=== PATIENT | male | born 1935 | race Caucasian/White ===

== ENCOUNTER 2019-05-24 22:41 | Inpatient (IN) | payer OTHER ==
[~2019-05-24] VITALS: Ht 182.9 cm; Wt 54.5 kg
[~2019-05-24 22:41] MED LIST: BENA20TA4 PO; CHOL10009 PO; GLIP10TA14 PO; LISI40TA3 PO; MTF1000T PO; PIOG45TA64 PO; RSV10T PO; TRAM50TA PO
[2019-05-24 22:59] VITALS: Ht 182.9 cm; Wt 54.5 kg
[2019-05-24] MEDS ORDERED: SOD CHLORIDE 0.9% 1,000 ML IV STA (23:49)
[2019-05-24] MEDS ORDERED: LACTATED RINGER'S 1,000 ML IV STA (23:49)
--- NOTE | 2019-05-24 23:53 | ERD ---
ER Documentation Chief Complaint Chief Complaint abdominal/back/chest/headache, also c/o poor appetite HPI 83-year-old man brought in by family members for loss of appetite and 2 days of weakness and probable dehydration. They state he has not been eating or drinking much and has had complaints of diffuse abdominal pain and cramping. Pain is been constant nonradiating and nonexertional. Patient denies history of abdominal surgeries or cancer. He has had no blood per rectum or melena, no fevers or chills. ROS All systems reviewed and are negative except as per history of present illness. Allergies Allergies: Coded Allergies: No Known Allergy (Unverified , 05/25/19) PMhx/Soc None Medical and Surgical Hx: pt denies Surgical Hx Hx Cardiac Disorders: Yes (HTN HLD) Hx Alcohol Use: No Hx Substance Use: No Hx Tobacco Use: Yes Smoking Status: Former smoker FmHx Family History: No diabetes Physical Exam Vitals Vital Signs Date Temp Pulse Resp B/P (MAP) Pulse Ox O2 O2 Flow FiO2 Time Delivery Rate 05/25/19 97.8 83 18 160/68 100 Nasal 2.0 00:54 (98) Cannula 05/24/19 97.8 102 20 109/53 95 22:59 (71) Physical Exam Const: No acute distress Head: Atraumatic Eyes: Normal Conjunctiva ENT: Normal External Ears, Nose and Mouth. Neck: Full range of motion. No meningismus. Resp: Clear to auscultation bilaterally Cardio: Regular rate and rhythm, no murmurs Abd: Soft, non tender, non distended. Normal bowel sounds Skin: No petechiae or rashes Back: No midline or flank tenderness Ext: No cyanosis, or edema Neur: Awake and alert Psych: Normal Mood and Affect Result Diagram: 05/24/19 2340 05/24/19 2340 Results 24 hrs Laboratory Tests Test 05/24/19 23:40 05/25/19 02:16 White Blood Count 28.6 10^3/ul Red Blood Count 4.72 10^6/ul Hemoglobin 13.2 g/dl Hematocrit 41.2 % Mean Corpuscular Volume 87.3 fl Mean Corpuscular Hemoglobin 28.0 pg Mean Corpuscular Hemoglobin Concent 32.0 g/dl Red Cell Distribution Width 19.3 % Platelet Count 223 10^3/UL Mean Platelet Volume 12.1 fl Immature Granulocytes % 0.700 % Neutrophils % % Segmented Neutrophils % (Manual) 88 % Band Neutrophils % (Manual) 5 % Lymphocytes % % Lymphocytes % (Manual) 3 % Monocytes % % Monocytes % (Manual) 2 % Eosinophils % % Basophils % % Myelocytes % (Manual) 1 % Plasma Cells % (manual) 1 % Nucleated Red Blood Cells % 0.0 /100WBC Immature Granulocytes # 0.190 10^3/ul Neutrophils # 10^3/ul Neutrophils # (Manual) 25.6 10^3/ul Band Neutrophils # 1.4 10^3/ul Lymphocytes (Manual) 0.8 10^3/ul Lymphocytes # 10^3/ul Monocytes # 10^3/ul Monocytes # (Manual) 0.5 10^3/ul Eosinophils # 10^3/ul Basophils # 10^3/ul Myelocytes # 0.2 10^3/ul Plasma Cells # (manual) 0.2 10^3/ul Nucleated Red Blood Cells # 10^3/ul Platelet Estimate NORMAL Giant Platelets 1 % Poikilocytosis 1+ Anisocytosis 1+ Prothrombin Time 15.5 Sec Prothrombin Time Ratio 1.2 INR International Normalized Ratio 1.22 Activated Partial Thromboplast Time 32.0 Sec Sodium Level 138 mmol/L Potassium Level 4.9 mmol/L Chloride Level 101 mmol/L Carbon Dioxide Level 23 mmol/L Anion Gap 14 Blood Urea Nitrogen 26 mg/dl Creatinine 1.31 mg/dl Est Glomerular Filtrat Rate mL/min mL/min Glucose Level 101 mg/dl Calcium Level 9.2 mg/dl Total Bilirubin 1.0 mg/dl Direct Bilirubin 0.00 mg/dl Indirect Bilirubin 1.0 mg/dl Aspartate Amino Transf (AST/SGOT) 199 IU/L Alanine Aminotransferase (ALT/SGPT) 57 IU/L Alkaline Phosphatase 1443 IU/L Troponin I < 0.012 ng/ml Total Protein 7.4 g/dl Albumin 3.3 g/dl Globulin 4.10 g/dl Albumin/Globulin Ratio 0.80 Lipase 122 U/L Urine Color MELISSA Urine Clarity SLIGHTLY CLOUDY Urine pH 5.0 Urine Specific [place] 1.017 Urine Ketones TRACE mg/dL Urine Nitrite NEGATIVE mg/dL Urine Bilirubin NEGATIVE mg/dL Urine Urobilinogen 2+ mg/dL Urine Leukocyte Esterase NEGATIVE Jojo/ul Urine Microscopic RBC 3 /HPF Urine Microscopic WBC 2 /HPF Urine Bacteria FEW /HPF Urine Mucus FEW /HPF Urine Hemoglobin NEGATIVE mg/dL Urine Glucose NEGATIVE mg/dL Urine Total Protein 1+ mg/dl Current Medications Medications Dose Sig/Mary Start Time Status Last (Trade) Ordered Route PRN Stop Time Admin Dose Reason Admin Sodium 1,000 ml @ Q1H STAT 05/24/19 DC 05/25/19 Chloride 1,000 mls/hr IV 23:49 00:04 05/25/19 00:48 Lactated 1,000 ml @ Q1H STAT 05/24/19 DC 05/25/19 Ringer's 1,000 mls/hr IV 23:49 00:03 05/25/19 00:48 Morphine 4 mg ONCE STAT 05/25/19 DC 05/25/19 Sulfate IV 00:18 00:48 (morphine) 05/25/19 00:19 Ondansetron 4 mg ONCE STAT 05/25/19 DC 05/25/19 HCl (Zofran IV 00:18 00:47 Inj) 05/25/19 00:19 Piperacillin 100 ml @ ONCE ONCE 05/25/19 DC 05/25/19 Sod/ 200 mls/hr IVPB 01:00 01:14 Tazobactam 05/25/19 01:29 Sod Sodium 1,000 ml @ [id number] IV 05/25/19 Chloride 70 mls/hr 02:28 IV Flush 3 ml PER 05/25/19 (NS 3 ml) PROTOCOL IV 02:30 Ondansetron 4 mg Q6H PRN 05/25/19 HCl (Zofran IV 02:30 Inj) NAUSEA/VOMITI NG 650 mg Q6H PRN 05/25/19 Acetaminophen PO .PAIN 1-3 02:30 (Tylenol OR TEMP Tab) Docusate 100 mg Q12H PRN 05/25/19 Sodium PO 02:30 (Colace) .CONSTIPATION Bisacodyl 5 mg DAILY PRN 05/25/19 (Dulcolax) PO 02:30 .CONSTIPATION Enoxaparin 40 mg DAILY SC 05/25/19 Sodium 09:00 (Lovenox) Procedures/MDM IV line was established patient was placed on ekg monitor rhythm strip revealed a sinus tachycardia at 110 bpm with upright P and T waves. Patient was afebrile EKG performed, read by me revealed a sinus tachycardia at 106 bpm, right axis deviation, right bundle branch block, no concerning ST elevations or depressions noted Administered 2 L IV crystalloid for dehydration, morphine 4 mg IV, Zofran 4 mg IV. 1 view chest x-ray performed, read by me revealed a left hilar mass, no acute infiltrates, no pneumothorax CBC reveals a leukocytosis of 29, electrolytes revealed dehydration with a BUN/creatinine of 26/1.3, liver function tests are unremarkable but alkaline phosphatase elevated at 1443, troponin negative, urinalysis negative for infection. CT scan of the abdomen pelvis was performed,IMPRESSION: 1. Partially visualized left perihilar mass suspicious for a neoplasm. 2. Elevated left hemidiaphragm with associated pleural effusion and atelectasis. 3. Enlarged liver with multiple poorly defined hypodense masses suspicious for a metastatic disease. 4. Abdominal lymphadenopathy including a necrotic appearing periportal lymph node. 5. Cholelithiasis with gallbladder sludge. 6. Mild abdominal and pelvic ascites. 7. Mild sigmoid colon diverticulosis without evidence for diverticulitis. 8. Diffuse atherosclerotic dash calcification. 9. Bilateral renal cysts. No obstructive uropathy. 10. Degenerative changes of the lumbar spine and bilateral hips. I administered Zosyn 3.375 g IV. Patient has new metastatic disease most likely due to colon carcinoma and has continued abdominal pain, he will be admitted to telemetry for continued medical management and consultations. Departure Diagnosis: Primary Impression: Acute dehydration Additional Impressions: Leukocytosis Leukocytosis type: lymphocytosis Qualified Codes: D72.820 - Lymphocytosis (symptomatic) Metastatic disease Cholelithiasis Cholelithiasis location: gallbladder Cholecystitis presence: without cholecystitis Biliary obstruction: without biliary obstruction Qualified Codes: K80.20 - Calculus of gallbladder without cholecystitis without obstruction Mass of left lung Ruled Out: Acute weakness Condition: Fair DESHWAN MCDONALD MD May 24, 2019 23:53
[2019-05-25] MEDS ORDERED: morphine 4 MG/ML VIAL IV STA (00:18)
[2019-05-25] MEDS ORDERED: ONDANSETRON 4 MG INJ IV STA (00:18)
[2019-05-25] MEDS ORDERED: PIPER-TAZO 3.375 GM IV (PMX) 100 ML IVPB ONE (01:00)
[2019-05-25] MEDS: SOD CHLORIDE 0.9% 1,000 ML IV SCH ×2 (02:28→10:28)
[2019-05-25] MEDS ORDERED: NACL 0.9% 3 ML SYG IV SCH (02:30)
[2019-05-25] MEDS ORDERED: BISACODYL (EC) 5 MG TAB PO PRN (02:30)
[2019-05-25] MEDS ORDERED: ONDANSETRON 4 MG INJ IV PRN (02:30)
[2019-05-25] MEDS ORDERED: DOCUSATE SODIUM 100 MG CAP PO PRN (02:30)
[2019-05-25] MEDS ORDERED: ACETAMINOPHEN 325 MG TAB PO PRN (02:30)
[2019-05-25 05:30] VITALS: BP 146/66; PULSE 81; RESP 17
[2019-05-25 07:26] VITALS: BP 146/40; PULSE 79; RESP 20
--- NOTE | 2019-05-25 08:48 | HP ---
Date/Time of Note Date/Time of Note DATE: 05/25/19 TIME: 08:34 Assessment/Plan VTE Prophylaxis SCD applied (from Nsg): Yes Pharmacological prophylaxis: NA/contraindicated Pharm contraindication: low risk/ambulating Lines/Catheters IV Catheter Type (from Nrsg): Peripheral IV Urinary Cath still in place: No Assessment/Plan Hospital Course This is a 83-year-old male being admitted to the telemetry floor for: #1 lung mass: Suspicion for underlying neoplasm given patient's history of weight loss. Will obtain a dedicated CT of the chest to further evaluate, and then consider lung mass biopsy versus liver mass biopsy. Will consult hematology . #2 Leukocytosis: Reactive versus infectious versus secondary to malignancy.. Patient does have 5% bandemia but no fevers. He was initiated on antibiotics in the emergency department we will continue antibiotics at the current time. Will await culture results. Monitor for fevers. #3 liver masses: Suspicion for possible metastatic disease. Please see #1. #4 acute kidney injury: I do not have a previous baseline creatinine. Patient does appear dehydrated. We will hydrate the patient with normal saline. Monitor renal function. Consider further work-up if renal function does not improve. Avoid NSAIDs and nephrotoxic agents #5 Elevated alkaline phosphatase: Imaging studies are not consistent with signs of cholecystitis or other infectious etiology at the current time. Will check a GGT. Could be secondary to underlying bone pathology versus malignancy. #6 Hypertension: We will hold home medication at the current time given HEIDE. Will need to confirm whether he is on benazepril or lisinopril. #7 diabetes mellitus: Given patient's poor p.o. intake.We will hold home oral medications, insulin sliding scale. Check hemoglobin A1c #8 hyperlipidemia: Resume statin when indicated #9 DVT GI prophylaxis: #9 weight loss: Concern for underlying malignant process. Please see #1. #10 DVT GI prophylaxis: SCDs, no GI prophylaxis indicated Further treatment strategy will be implemented as per the clinical course. CODE STATUS: DNR/DNI. I had a lengthy discussion with the patient who stated that he does not want to be on any artificial means of keeping him alive especially mechanical ventilation. He does not want to pursue diagnosis for the underlying mass. Result Diagram: 05/25/19 0539 05/25/19 0539 Results 24hrs Laboratory Tests Test 05/24/19 23:40 05/25/19 02:16 05/25/19 05:39 White Blood Count 28.6 H 23.7 H Red Blood Count 4.72 4.21 L Hemoglobin 13.2 L 11.9 L Hematocrit 41.2 L 36.7 L Mean Corpuscular Volume 87.3 87.2 Mean Corpuscular Hemoglobin 28.0 L 28.3 L Mean Corpuscular 32.0 32.4 Hemoglobin Concent Red Cell Distribution Width 19.3 H 19.2 H Platelet Count 223 116 #L Mean Platelet Volume 12.1 H 13.1 H Immature Granulocytes % 0.700 H 0.800 H Neutrophils % 90.2 H Segmented Neutrophils 88 H % (Manual) Band Neutrophils % (Manual) 5 H Lymphocytes % 5.1 L Lymphocytes % (Manual) 3 L Monocytes % 3.6 Monocytes % (Manual) 2 Eosinophils % 0.0 Basophils % 0.3 Myelocytes % (Manual) 1 H Plasma Cells % (manual) 1 Nucleated Red Blood Cells % 0.0 0.0 Immature Granulocytes # 0.190 H 0.190 H Neutrophils # 21.4 H Neutrophils # (Manual) 25.6 H Band Neutrophils # 1.4 H Lymphocytes (Manual) 0.8 Lymphocytes # 1.2 Monocytes # 0.9 Monocytes # (Manual) 0.5 Eosinophils # 0.0 Basophils # 0.1 Myelocytes # 0.2 H Plasma Cells # (manual) 0.2 H Nucleated Red Blood Cells # 0.0 Platelet Estimate NORMAL Giant Platelets 1 H Poikilocytosis 1+ Anisocytosis 1+ Prothrombin Time 15.5 H Prothrombin Time Ratio 1.2 INR International 1.22 Normalized Ratio Activated Partial Thromboplast 32.0 Time Sodium Level 138 138 Potassium Level 4.9 4.8 Chloride Level 101 105 Carbon Dioxide Level 23 22 Anion Gap 14 H 11 Blood Urea Nitrogen 26 H 27 H Creatinine 1.31 H 1.16 Est Glomerular Filtrat Rate mL/min Glucose Level 101 79 Calcium Level 9.2 8.7 Total Bilirubin 1.0 0.8 Direct Bilirubin 0.00 0.00 Indirect Bilirubin 1.0 0.8 Aspartate Amino 199 H 174 H Transf (AST/SGOT) Alanine 57 54 Aminotransferase (ALT/SGPT) Alkaline Phosphatase 1443 H 1388 H Troponin I < 0.012 Total Protein 7.4 6.7 Albumin 3.3 2.9 L Globulin 4.10 H 3.80 H Albumin/Globulin Ratio 0.80 0.76 Lipase 122 Urine Color MELISSA Urine Clarity SLIGHTLY CLOUDY A Urine pH 5.0 Urine Specific [place] 1.017 Urine Ketones TRACE A Urine Nitrite NEGATIVE Urine Bilirubin NEGATIVE Urine Urobilinogen 2+ H Urine Leukocyte Esterase NEGATIVE Urine Microscopic RBC 3 Urine Microscopic WBC 2 Urine Bacteria FEW A Urine Mucus FEW A Urine Hemoglobin NEGATIVE Urine Glucose NEGATIVE Urine Total Protein 1+ H Magnesium Level 1.8 Triglycerides Level 175 H Cholesterol Level 188 LDL Cholesterol, Calculated 127 HDL Cholesterol 26 L Cholesterol/HDL Ratio 7.2 Thyroid Stimulating 6.400 H Hormone (TSH) HPI/ROS Admit Date/Time Admit Date/Time May 25, 2019 at 02:29 Hx of Present Illness Chief complaint: Generalized weakness, abdominal pain for the last few weeks This is a 83-year-old male with a past medical history of hypertension, diabetes mellitus, hyperlipidemia and was a [employer] who presents to the presented to the emergency department with complaints of weakness and generalized abdominal pain for the last few weeks. Patient reports that he has had a poor appetite over the last few weeks for both solids and liquids. He denies having difficulty swallowing or eating he just states that he does have an appetite. He does report weight loss but does not specify an amount. He denies any fevers. He reports that his pain is generalized of his abdomen and has been constant but is nonradiating. He denies any problems with his bowel movement and denies any hemoptysis or hematemesis or melena or hematochezia. Denies any blood in his urine. Allergies: NKDA Medications: Benazepril 20 mg p.o. daily Vitamin D3 Glipizide 10 mg p.o. daily Lisinopril 40 mg p.o. daily Metformin 1000 mg p.o. twice daily Actos 40 mg p.o. daily Tramadol 50 mg p.o. daily Rosuvastatin 10 mg p.o. daily ROS Const: As per HPI Eyes : No pain discharge or redness or change in visual acuity ENT: No pain, sore throat, congestion, congestion, dysphagia or discharge Respiratory: No shortness of breath, cough, sputum, wheezing, or pleuritic pain Cardiovascular: No chest pain, palpitation, PND, or edema GI : As per HPI Genitourinary: No dysuria, hematuria, flank pain , discharge or CVA tenderness Musculoskeletal: No joint pain, back pain, neck pain, restricted range of motion in neck or joints Skin: No rash, bruising or hives Neuro: No headache, dizziness, syncope, seizure, focal weakness Endocrine: No polyuria, polydipsia, temperature intolerance Psych: No hallucination, depression, anxiety or suicidal ideation PMH/Family/Social Past Medical History Hypertension Diabetes mellitus Hyperlipidemia Medications Current Medications Sodium Chloride 1,000 ml @ 70 mls/hr [id number] IV ; Start 05/25/19 at 02:28 IV Flush (NS 3 ml) 3 ml PER PROTOCOL IV ; Start 05/25/19 at 02:30 Ondansetron HCl (Zofran Inj) 4 mg Q6H PRN IV NAUSEA/VOMITING; Start 05/25/19 at 02:30 Acetaminophen (Tylenol Tab) 650 mg Q6H PRN PO .PAIN 1-3 OR TEMP; Start 05/25/19 at 02:30 Docusate Sodium (Colace) 100 mg Q12H PRN PO .CONSTIPATION; Start 05/25/19 at 02 :30 Bisacodyl (Dulcolax) 5 mg DAILY PRN PO .CONSTIPATION; Start 05/25/19 at 02:30 Enoxaparin Sodium (Lovenox) 40 mg DAILY SC ; Start 05/25/19 at 09:00 Coded Allergies: No Known Allergy (Unverified , 05/25/19) Past Surgical History Past Surgical Hx: no surgical history Family History Significant Family History: no pertinent family hx Social History Alcohol Use: none Smoking Status: Never smoker Drug Use: none Exam/Review of Systems Vital Signs Vitals Vital Signs Date Temp Pulse Resp B/P (MAP) Pulse Ox O2 O2 Flow FiO2 Time Delivery Rate 05/25/19 96 Room Air 07:53 05/25/19 97.4 79 20 146/40 07:26 (75) 05/25/19 2.0 04:28 Exam Exam General: Patient is a pleasant male currently lying in bed in no acute distress, he does appear to be disheveled and dehydrated, thin/frail appearing HEENT: Atraumatic, normocephalic. The pupils are equal, round and reactive. Extraocular motor are intact Neck: Supple with full range of motion. No rigidity or meningismus Chest: Nontender Lungs: Clear to auscultation bilaterally no crackles rales or wheezing Heart: Normal S1-S2, Regular rhythm and rate. No murmur, S3, or S4 Abdomen: Soft , nontender, nondistended , bowel sounds are present. No guarding no rebound tenderness , No masses or organomegaly. No costovertebral temporal angle mass Extremities: Ecchymosis noted of the bilateral arms, sacral decub stage I Neurologic: Normal mental status, speech normal, cranial nerves II through XII are intact, motor and sensory are intact, EMILIANO SADLER May 25, 2019 08:45
[2019-05-25] MEDS ORDERED: ENOXAPARIN 40 MG/0.4 ML SYG SC SCH (09:00)
[2019-05-25] MEDS: PIPER-TAZO 3.375 GM IV (PMX) 100 ML IVPB SCH ×3 (10:29→18:42)
[2019-05-25 11:45] VITALS: BP 142/71; PULSE 81; RESP 20
--- NOTE | 2019-05-25 13:57 | PN ---
Date/Time of Note Date/Time of Note DATE: 05/25/19 TIME: 13:57 Assessment/Plan VTE Prophylaxis Risk score (from Nsg)>0 risk: 7 SCD applied (from Nsg): Yes Pharmacological prophylaxis: LMWH Lines/Catheters IV Catheter Type (from Nrsg): Peripheral IV Urinary Cath still in place: No Assessment/Plan Hospital Course 83-year-old male with a past medical history of hypertension, diabetes mellitus, hyperlipidemia and was a [place] who presents to the presented to the emergency department with complaints of weakness and generalized abdominal pain for the last few weeks currently managed as follows: Large left upper lobe/hilar mass with satellite lesions in the left upper lobe as well as extensive mediastinal lymphadenopathy concerning for metastatic primary lung cancer. Large left pleural effusion and atelectasis of most of the left lower lobe. Moderately sized necrotic cranial lesion -patient reports this was said to be benign at [facility], will request records -planned for excision 06/12/19 at the [facility] Enlarged liver with multiple poorly defined hypodense masses suspicious for a metastatic disease. -alk phos levels also significantly elevated Hypertension Diabetes Dyslipidemia Acute renal insufficiency: resolved ? Sepsis with bandemia vs SIRS -however high probability of underlying obstructive pna, continue empiric Zosyn Cholelithiasis without cholecystitis Cachexia Plan: patient will need biopsy, will defer to heme onc for best biopsy site. Liver versus lung, or both ? continue abx, supportive care Thoracentesis ? Palliative care consult Result Diagram: 05/25/19 0539 05/25/19 0723 Results 24hrs Laboratory Tests Test 05/24/19 23:40 05/25/19 02:16 05/25/19 05:39 05/25/19 07:23 White Blood Count 28.6 H 23.7 H Red Blood Count 4.72 4.21 L Hemoglobin 13.2 L 11.9 L Hematocrit 41.2 L 36.7 L Mean Corpuscular 87.3 87.2 Volume Mean Corpuscular 28.0 L 28.3 L Hemoglobin Mean Corpuscular 32.0 32.4 Hemoglobin Concen t Red Cell 19.3 H 19.2 H Distribution Width Platelet Count 223 116 #L Mean Platelet 12.1 H 13.1 H Volume Immature 0.700 H 0.800 H Granulocytes % Neutrophils % 90.2 H Segmented 88 H Neutrophils % (Manual) Band Neutrophils 5 H % (Manual) Lymphocytes % 5.1 L Lymphocytes % 3 L (Manual) Monocytes % 3.6 Monocytes % 2 (Manual) Eosinophils % 0.0 Basophils % 0.3 Myelocytes % 1 H (Manual) Plasma Cells % 1 (manual) Nucleated Red 0.0 0.0 Blood Cells % Immature 0.190 H 0.190 H Granulocytes # Neutrophils # 21.4 H Neutrophils # 25.6 H (Manual) Band Neutrophils 1.4 H # Lymphocytes 0.8 (Manual) Lymphocytes # 1.2 Monocytes # 0.9 Monocytes # 0.5 (Manual) Eosinophils # 0.0 Basophils # 0.1 Myelocytes # 0.2 H Plasma Cells # 0.2 H (manual) Nucleated Red 0.0 Blood Cells # Platelet Estimate NORMAL Giant Platelets 1 H Poikilocytosis 1+ Anisocytosis 1+ Prothrombin Time 15.5 H Prothrombin Time 1.2 Ratio INR International 1.22 Normalized Ratio Activated 32.0 Partial Thrombopl ast Time Sodium Level 138 138 Potassium Level 4.9 4.8 Chloride Level 101 105 Carbon Dioxide 23 22 Level Anion Gap 14 H 11 Blood Urea 26 H 27 H Nitrogen Creatinine 1.31 H 1.16 Est Glomerular Filtrat Rate mL/min Glucose Level 101 79 Calcium Level 9.2 8.7 Total Bilirubin 1.0 0.8 Direct Bilirubin 0.00 0.00 Indirect 1.0 0.8 Bilirubin Aspartate Amino 199 H 174 H Transf (AST/SGOT) Alanine 57 54 Aminotransferase (ALT/SGPT) Alkaline 1443 H 1388 H Phosphatase Troponin I < 0.012 Total Protein 7.4 6.7 Albumin 3.3 2.9 L Globulin 4.10 H 3.80 H Albumin/Globulin 0.80 0.76 Ratio Lipase 122 Urine Color MELISSA Urine Clarity SLIGHTLY CLOUDY A Urine pH 5.0 Urine Specific 1.017 [place] Urine Ketones TRACE A Urine Nitrite NEGATIVE Urine Bilirubin NEGATIVE Urine 2+ H Urobilinogen Urine Leukocyte NEGATIVE Esterase Urine Microscopic 3 RBC Urine Microscopic 2 WBC Urine Bacteria FEW A Urine Mucus FEW A Urine Hemoglobin NEGATIVE Urine Glucose NEGATIVE Urine Total 1+ H Protein Magnesium Level 1.8 Triglycerides 175 H Level Cholesterol Level 188 LDL Cholesterol, 127 Calculated HDL Cholesterol 26 L Cholesterol/HDL 7.2 Ratio Thyroid 6.400 H Stimulating Hormone (TSH) Test 05/25/19 10:18 Carcinoembryonic 52.8 H Antigen CA 19-9 Antigen 745.0 H Immunoglobulin A 543 H Immunoglobulin G 1698 H Immunoglobulin M 153 Subjective 24 Hr Interval Summary Free Text/Dictation Patient is a poor historian, but he tells me that he was recently [facility] when he had gone for assessment of lethargy and poor appetite, but because nothing was being done for him he opted to be discharged. 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 He is being managed for it at the [facility], and tells me that he has surgery scheduled to remove it on the of next month. Regarding why he was brought in here, the patient is not really able to tell me much, but the admitting H&P reports family concerns for weakness and generalized abdominal pain as well as poor appetite. The patient does tell me that he has been told in the past that he has a liver mass that is concerning for cancer. Again the patient is a poor historian. In the emergency room CT of the abdomen and pelvis does confirm enlarged liver with multiple masses suspicious for metastasis and a chest CT shows a large left upper lobe heel and mass with satellite lesions in the left upper lobe and extensive mediastinal lymphadenopathy concerning for primary metastatic lung cancer. Patient at this time is awaiting oncology review. Currently however he is comfortable. Exam/Review of Systems Exam Vitals Vital Signs Date Temp Pulse Resp B/P (MAP) Pulse Ox O2 O2 Flow FiO2 Time Delivery Rate 05/25/19 Room Air 12:13 05/25/19 97.8 81 20 142/71 94 11:45 (94) 05/25/19 2.0 04:28 Exam General: A&O x3, answering questions appropriately, frail , cachectic HEENT: moderate necrotic, but non oozing or infected temporooccipital cranial lesion PERRL. EOM intact Neck: supple CVS: S1, S2, RRR. no murmurs. no pain on chest wall palpation Lungs: CTA but diminished ++ L lung Abd: soft, nontender, +BS Ext: moving all extremities, no edema, diffuse msc wasting skin: multiple ecchymosis . Results Results 24hrs Laboratory Tests Test 05/24/19 23:40 05/25/19 02:16 05/25/19 05:39 05/25/19 07:23 White Blood Count 28.6 H 23.7 H Red Blood Count 4.72 4.21 L Hemoglobin 13.2 L 11.9 L Hematocrit 41.2 L 36.7 L Mean Corpuscular 87.3 87.2 Volume Mean Corpuscular 28.0 L 28.3 L Hemoglobin Mean Corpuscular 32.0 32.4 Hemoglobin Concen t Red Cell 19.3 H 19.2 H Distribution Width Platelet Count 223 116 #L Mean Platelet 12.1 H 13.1 H Volume Immature 0.700 H 0.800 H Granulocytes % Neutrophils % 90.2 H Segmented 88 H Neutrophils % (Manual) Band Neutrophils 5 H % (Manual) Lymphocytes % 5.1 L Lymphocytes % 3 L (Manual) Monocytes % 3.6 Monocytes % 2 (Manual) Eosinophils % 0.0 Basophils % 0.3 Myelocytes % 1 H (Manual) Plasma Cells % 1 (manual) Nucleated Red 0.0 0.0 Blood Cells % Immature 0.190 H 0.190 H Granulocytes # Neutrophils # 21.4 H Neutrophils # 25.6 H (Manual) Band Neutrophils 1.4 H # Lymphocytes 0.8 (Manual) Lymphocytes # 1.2 Monocytes # 0.9 Monocytes # 0.5 (Manual) Eosinophils # 0.0 Basophils # 0.1 Myelocytes # 0.2 H Plasma Cells # 0.2 H (manual) Nucleated Red 0.0 Blood Cells # Platelet Estimate NORMAL Giant Platelets 1 H Poikilocytosis 1+ Anisocytosis 1+ Prothrombin Time 15.5 H Prothrombin Time 1.2 Ratio INR International 1.22 Normalized Ratio Activated 32.0 Partial Thrombopl ast Time Sodium Level 138 138 Potassium Level 4.9 4.8 Chloride Level 101 105 Carbon Dioxide 23 22 Level Anion Gap 14 H 11 Blood Urea 26 H 27 H Nitrogen Creatinine 1.31 H 1.16 Est Glomerular Filtrat Rate mL/min Glucose Level 101 79 Calcium Level 9.2 8.7 Total Bilirubin 1.0 0.8 Direct Bilirubin 0.00 0.00 Indirect 1.0 0.8 Bilirubin Aspartate Amino 199 H 174 H Transf (AST/SGOT) Alanine 57 54 Aminotransferase (ALT/SGPT) Alkaline 1443 H 1388 H Phosphatase Troponin I < 0.012 Total Protein 7.4 6.7 Albumin 3.3 2.9 L Globulin 4.10 H 3.80 H Albumin/Globulin 0.80 0.76 Ratio Lipase 122 Urine Color MELISSA Urine Clarity SLIGHTLY CLOUDY A Urine pH 5.0 Urine Specific 1.017 [place] Urine Ketones TRACE A Urine Nitrite NEGATIVE Urine Bilirubin NEGATIVE Urine 2+ H Urobilinogen Urine Leukocyte NEGATIVE Esterase Urine Microscopic 3 RBC Urine Microscopic 2 WBC Urine Bacteria FEW A Urine Mucus FEW A Urine Hemoglobin NEGATIVE Urine Glucose NEGATIVE Urine Total 1+ H Protein Magnesium Level 1.8 Triglycerides 175 H Level Cholesterol Level 188 LDL Cholesterol, 127 Calculated HDL Cholesterol 26 L Cholesterol/HDL 7.2 Ratio Thyroid 6.400 H Stimulating Hormone (TSH) Test 05/25/19 10:18 Carcinoembryonic 52.8 H Antigen CA 19-9 Antigen 745.0 H Immunoglobulin A 543 H Immunoglobulin G 1698 H Immunoglobulin M 153 Medications Medication Current Medications Sodium Chloride 1,000 ml @ 70 mls/hr [id number] IV Last administered on 05/25/19 10:28; Admin Dose 70 MLS/HR; Start 05/25/19 at 02:28 IV Flush (NS 3 ml) 3 ml PER PROTOCOL IV ; Start 05/25/19 at 02:30 Ondansetron HCl (Zofran Inj) 4 mg Q6H PRN IV NAUSEA/VOMITING; Start 05/25/19 at 02:30 Acetaminophen (Tylenol Tab) 650 mg Q6H PRN PO .PAIN 1-3 OR TEMP; Start 05/25/19 at 02:30 Docusate Sodium (Colace) 100 mg Q12H PRN PO .CONSTIPATION; Start 05/25/19 at 02:30 Bisacodyl (Dulcolax) 5 mg DAILY PRN PO .CONSTIPATION; Start 05/25/19 at 02:30 Enoxaparin Sodium (Lovenox) 40 mg DAILY SC Last administered on 05/25/19at 10:30; Admin Dose 40 MG; Start 05/25/19 at 09:00 Piperacillin Sod/ Tazobactam Sod 100 ml @ 200 mls/hr Q6 IVPB Last administered on 05/25/19 10:29; Admin Dose 200 MLS/HR; Start 05/25/19 at 09:00 MISAEL JUNIOR May 25, 2019 13:57
[2019-05-25 15:42] VITALS: BP 145/85; PULSE 77; RESP 20
--- NOTE | 2019-05-25 17:19 | CONS ---
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 He does not want intubation or heroic measures, such as CPR, but does want some things treated. His main concern is the skin cancer on his scalp but the bigger issue may be the probable lung tumor. Given the obvious hepatomegaly, a liver biopsy should be an easy way to obtain tissue. The reason would be to confirm the diagnosis of carcinoma as well as to run genomic studies to see if an easy treatment would be appropriate. These would depend upon EGFR, ALK, MARK ANTHONY, etc results. However, if no treatment would be accepted under any circumstances, then a biopsy would not be suggested. In view of his mentation, family should be involved in the decision making. Note that I would not regard him as a good chemotherapy candidate due to poor performance status and poor nutritional status. 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 I will follow with you and we can contact the family tomorrow. Consultation Date/Type/Reason Admit Date/Time May 25, 2019 at 02:29 Date of Consultation: May 25, 2019 Type of Consult Oncology Reason for Consultation Likely cancer Requesting Provider: EMILIANO SADLER Date/Time of Note DATE: 05/25/19 TIME: 17:02 Hx of Present Illness 83 yo man referred for probable lung cancer. He was brought to ER by family for dehydration, abdominal pain and weight loss. He is not a good historian but he says that his main concern was a tumor on the scalp that he says has been present for awhile and was biopsied at the [facility]. He thinks it was a skin cancer. While here this admission, he was found to have a large left upper lobe and hilar lung mass associated with a homolateral pleural effusion as well as liver tumor and abdominal adenopathy. He denies dyspnea and is aware of having lost weight but he thought it was due to a diet he started five years ago when he says he weighed 260 pounds. Other issues include diabetes, dyslipidemia and azotemia. Past Medical History Home Meds Reported Medications Lisinopril* (Lisinopril*) 40 Mg Tablet, 40 MG PO DAILY, #30 TAB 05/25/19 Pioglitazone Hcl* (Pioglitazone Hcl*) 45 Mg Tablet, 45 MG PO DAILY, TAB 05/25/19 Cholecalciferol (Vitamin D3) 1,000 Unit Capsule, 1000 UNIT PO DAILY, CAP 05/25/19 Rosuvastatin Calcium* (Crestor*) 10 Mg Tablet, 10 MG PO QHS, #30 TAB 05/25/19 Tramadol Hcl* (Ultram*) 50 Mg Tablet, 50 MG PO Q6H PRN for PAIN, TAB 05/25/19 Pioglitazone Hcl* (Pioglitazone Hcl*) 45 Mg Tablet, 45 MG PO DAILY, TAB 05/25/19 Glipizide* (Glipizide*) 10 Mg Tablet, 10 MG PO DAILY, TAB 05/25/19 Benazepril Hcl* (Benazepril Hcl*) 20 Mg Tablet, 20 MG PO DAILY, #30 TAB 05/25/19 Metformin* (Glucophage*) 1,000 Mg Tablet, 1000 MG PO BID, #60 TAB 05/25/19 Medications Current Medications Sodium Chloride 1,000 ml @ 70 mls/hr [id number] IV Last administered on 05/25/19at 10:28; Admin Dose 70 MLS/HR; Start 05/25/19 at 02:28 IV Flush (NS 3 ml) 3 ml PER PROTOCOL IV ; Start 05/25/19 at 02:30 Ondansetron HCl (Zofran Inj) 4 mg Q6H PRN IV NAUSEA/VOMITING; Start 05/25/19 at 02:30 Acetaminophen (Tylenol Tab) 650 mg Q6H PRN PO .PAIN 1-3 OR TEMP; Start 05/25/19 at 02:30 Bisacodyl (Dulcolax) 5 mg DAILY PRN PO .CONSTIPATION; Start 05/25/19 at 02:30 Enoxaparin Sodium (Lovenox) 40 mg DAILY SC Last administered on 05/25/19at 10:30; Admin Dose 40 MG; Start 05/25/19 at 09:00 Piperacillin Sod/ Tazobactam Sod 100 ml @ 200 mls/hr Q6 IVPB Last administered on 05/25/19at 14:12; Admin Dose 200 MLS/HR; Start 05/25/19 at 09:00 Docusate Sodium (Colace) 100 mg Q12H PO ; Start 05/26/19 at 02:30; Status UNV Allergies: Coded Allergies: No Known Allergy (Unverified , 05/25/19) Past Surgical History Past Surgical Hx: no surgical history Social History Alcohol Use: none Smoking Status: Never smoker Drug Use: none Exam/Review of Systems Exam Vitals Vital Signs Date Temp Pulse Resp B/P (MAP) Pulse Ox O2 O2 Flow FiO2 Time Delivery Rate 05/25/19 Room Air 16:36 05/25/19 97.5 77 20 145/85 96 15:42 (105) 05/25/19 2.0 04:28 Constitutional: alert, other (thin and chronically ill appearing) Head: other (3 cm mass on scalp that is bleeding) Eyes: other (conjunctival pallor) ENMT: other (no leucoplakia) Neck: supple Respiratory: diminished breath sounds (on left side) Cardiovascular: regular rate and rhythm Gastrointestinal: hepatomegaly (massive liver with hard nodular texture) Musculoskeletal: muscle weakness (depleted muscle mass) Neurological: other (alert but poor historian) Lymph: nl lymph nodes Results Result Diagram: 05/25/19 0539 05/25/19 0723 Results 24hrs Laboratory Tests Test 05/24/19 23:40 05/25/19 02:16 05/25/19 05:39 05/25/19 07:23 White Blood Count 28.6 H 23.7 H Red Blood Count 4.72 4.21 L Hemoglobin 13.2 L 11.9 L Hematocrit 41.2 L 36.7 L Mean Corpuscular 87.3 87.2 Volume Mean Corpuscular 28.0 L 28.3 L Hemoglobin Mean Corpuscular 32.0 32.4 Hemoglobin Concen t Red Cell 19.3 H 19.2 H Distribution Width Platelet Count 223 116 #L Mean Platelet 12.1 H 13.1 H Volume Immature 0.700 H 0.800 H Granulocytes % Neutrophils % 90.2 H Segmented 88 H Neutrophils % (Manual) Band Neutrophils 5 H % (Manual) Lymphocytes % 5.1 L Lymphocytes % 3 L (Manual) Monocytes % 3.6 Monocytes % 2 (Manual) Eosinophils % 0.0 Basophils % 0.3 Myelocytes % 1 H (Manual) Plasma Cells % 1 (manual) Nucleated Red 0.0 0.0 Blood Cells % Immature 0.190 H 0.190 H Granulocytes # Neutrophils # 21.4 H Neutrophils # 25.6 H (Manual) Band Neutrophils 1.4 H # Lymphocytes 0.8 (Manual) Lymphocytes # 1.2 Monocytes # 0.9 Monocytes # 0.5 (Manual) Eosinophils # 0.0 Basophils # 0.1 Myelocytes # 0.2 H Plasma Cells # 0.2 H (manual) Nucleated Red 0.0 Blood Cells # Platelet Estimate NORMAL Giant Platelets 1 H Poikilocytosis 1+ Anisocytosis 1+ Prothrombin Time 15.5 H Prothrombin Time 1.2 Ratio INR International 1.22 Normalized Ratio Activated 32.0 Partial Thrombopl ast Time Sodium Level 138 138 Potassium Level 4.9 4.8 Chloride Level 101 105 Carbon Dioxide 23 22 Level Anion Gap 14 H 11 Blood Urea 26 H 27 H Nitrogen Creatinine 1.31 H 1.16 Est Glomerular Filtrat Rate mL/min Glucose Level 101 79 Calcium Level 9.2 8.7 Total Bilirubin 1.0 0.8 Direct Bilirubin 0.00 0.00 Indirect 1.0 0.8 Bilirubin Aspartate Amino 199 H 174 H Transf (AST/SGOT) Alanine 57 54 Aminotransferase (ALT/SGPT) Alkaline 1443 H 1388 H Phosphatase Troponin I < 0.012 Total Protein 7.4 6.7 Albumin 3.3 2.9 L Globulin 4.10 H 3.80 H Albumin/Globulin 0.80 0.76 Ratio Lipase 122 Urine Color MELISSA Urine Clarity SLIGHTLY CLOUDY A Urine pH 5.0 Urine Specific 1.017 [place] Urine Ketones TRACE A Urine Nitrite NEGATIVE Urine Bilirubin NEGATIVE Urine 2+ H Urobilinogen Urine Leukocyte NEGATIVE Esterase Urine Microscopic 3 RBC Urine Microscopic 2 WBC Urine Bacteria FEW A Urine Mucus FEW A Urine Hemoglobin NEGATIVE Urine Glucose NEGATIVE Urine Total 1+ H Protein Magnesium Level 1.8 Triglycerides 175 H Level Cholesterol Level 188 LDL Cholesterol, 127 Calculated HDL Cholesterol 26 L Cholesterol/HDL 7.2 Ratio Thyroid 6.400 H Stimulating Hormone (TSH) Test 05/25/19 10:18 Carcinoembryonic 52.8 H Antigen CA 19-9 Antigen 745.0 H Immunoglobulin A 543 H Immunoglobulin G 1698 H Immunoglobulin M 153 Medications Medication Current Medications Sodium Chloride 1,000 ml @ 70 mls/hr [id number] IV Last administered on 05/25/19at 10:28; Admin Dose 70 MLS/HR; Start 05/25/19 at 02:28 IV Flush (NS 3 ml) 3 ml PER PROTOCOL IV ; Start 05/25/19 at 02:30 Ondansetron HCl (Zofran Inj) 4 mg Q6H PRN IV NAUSEA/VOMITING; Start 05/25/19 at 02:30 Acetaminophen (Tylenol Tab) 650 mg Q6H PRN PO .PAIN 1-3 OR TEMP; Start 05/25/19 at 02:30 Bisacodyl (Dulcolax) 5 mg DAILY PRN PO .CONSTIPATION; Start 05/25/19 at 02:30 Enoxaparin Sodium (Lovenox) 40 mg DAILY SC Last administered on 05/25/19at 1 0:30; Admin Dose 40 MG; Start 05/25/19 at 09:00 Piperacillin Sod/ Tazobactam Sod 100 ml @ 200 mls/hr Q6 IVPB Last administered on 05/25/19at 14:12; Admin Dose 200 MLS/HR; Start 05/25/19 at 09:00 Docusate Sodium (Colace) 100 mg Q12H PO ; Start 05/26/19 at 02:30; Status UNV MARIXA MANCINI MD May 25, 2019 17:19
[2019-05-25 20:03] VITALS: BP 133/74; PULSE 81; RESP 18
[2019-05-25] MEDS ORDERED: HYDROmorphONE 0.5 MG/0.5 ML SYG IV PRN (21:30)
[2019-05-26] VITALS (7 sets, daily range): BP systolic 122–167; BP diastolic 67–78; PULSE 66–82; RESP 14–20
[2019-05-26] MEDS: PIPER-TAZO 3.375 GM IV (PMX) 100 ML IVPB SCH ×5 (00:11→23:23)
[2019-05-26] MEDS ORDERED: GLUCOSE GEL 15 GRAM TUBE BUCCAL PRN (00:30)
[2019-05-26] MEDS ORDERED: GLUCAGON 1 MG INJ IM PRN (00:30)
[2019-05-26] MEDS ORDERED: GLUCOSE GEL 15 GRAM TUBE PO PRN ×2 (00:30)
[2019-05-26] MEDS ORDERED: DEXTROSE 50% 50 ML SYRINGE IV PRN ×2 (00:30)
[2019-05-26] MEDS: INSULIN ASPART [NOVOLOG] 3 ML PEN SC SCH ×6 (01:00→20:30)
[2019-05-26] MEDS: DEXTROSE 5%-0.45% NACL 1,000 ML IV SCH ×3 (01:06→23:23)
[2019-05-26] MEDS: ACCU-CHEK XX SCH (01:39)
[2019-05-26] MEDS: LORAZEPAM 2 MG INJ IV PRN ×2 (04:50→11:12)
--- NOTE | 2019-05-26 11:50 | PN ---
Date/Time of Note Date/Time of Note DATE: 05/26/19 TIME: 11:49 Assessment/Plan VTE Prophylaxis Risk score (from Nsg)>0 risk: 9 SCD applied (from Nsg): Yes Pharmacological prophylaxis: heparin Lines/Catheters IV Catheter Type (from Nrsg): Peripheral IV Urinary Cath still in place: No Assessment/Plan Hospital Course 83-year-old male with a past medical history of hypertension, diabetes mellitus, hyperlipidemia and was a [employer] who presents to the presented to the emergency department with complaints of weakness and generalized abdominal pain for the last few weeks currently managed as follows: Large left upper lobe/hilar mass with satellite lesions in the left upper lobe as well as extensive mediastinal lymphadenopathy concerning for metastatic primary lung cancer. Large left pleural effusion and atelectasis of most of the left lower lobe. Moderately sized necrotic cranial lesion -patient reports this was said to be benign at [facility], will request records -planned for excision 06/12/19 at the [facility] Enlarged liver with multiple poorly defined hypodense masses suspicious for a metastatic disease. -alk phos levels also significantly elevated Hypertension Diabetes Dyslipidemia Acute renal insufficiency: resolved ? Sepsis with bandemia vs SIRS -however high probability of underlying obstructive pna, continue empiric Zosyn -improving Cholelithiasis without cholecystitis Cachexia Chronic dementia? with sundowning Acute encephalopathy (toxic metabolic, probable brain mets?) Plan: Patient going down to radiology for biopsy now Try to reach next of kin to notify them of events and define goals of care Creatinine bump noted, continue gentle hydration close monitoring and frequent reorientation Palliative care consult Supportive care Result Diagram: 05/26/19 0531 05/26/1931 Results 24hrs Laboratory Tests Test 05/26/19 00:57 05/26/19 01:23 05/26/19 04:55 05/26/19 05:28 Bedside Glucose 40 *L 122 52 L 118 Test 05/26/19 05:31 05/26/19 08:24 White Blood Count 16.7 #H Red Blood Count 3.91 L Hemoglobin 11.1 L Hematocrit 35.0 L Mean Corpuscular 89.5 Volume Mean Corpuscular 28.4 L Hemoglobin Mean Corpuscular 31.7 L Hemoglobin Concent Red Cell 19.8 H Distribution Width Platelet Count 127 L Mean Platelet Volume 11.6 H Immature 0.800 H Granulocytes % Neutrophils % 90.3 H Lymphocytes % 4.5 L Monocytes % 4.1 Eosinophils % 0.1 Basophils % 0.2 Nucleated Red Blood 0.0 Cells % Immature 0.130 H Granulocytes # Neutrophils # 15.1 H Lymphocytes # 0.8 Monocytes # 0.7 Eosinophils # 0.0 Basophils # 0.0 Nucleated Red Blood 0.0 Cells # Erythrocyte 23 H Sedimentation Rate Sodium Level 139 Potassium Level 4.0 Chloride Level 105 Carbon Dioxide Level 22 Anion Gap 12 Blood Urea Nitrogen 31 H Creatinine 1.64 H Est Glomerular Filtrat Rate mL/min Glucose Level 138 # Hemoglobin A1c 5.3 Calcium Level 8.3 L Total Bilirubin 0.7 Direct Bilirubin 0.00 Indirect Bilirubin 0.7 Aspartate Amino 156 H Transf (AST/SGOT) Alanine 48 Aminotransferase (AL T/SGPT) Alkaline Phosphatase 1296 H Total Protein 5.8 L Albumin 2.6 L Globulin 3.20 Albumin/Globulin 0.81 Ratio Free Thyroxine Index Pending Thyroxine (T4) Pending Triiodothyronine 41.3 H (T3) Uptake Bedside Glucose 79 Subjective 24 Hr Interval Summary Free Text/Dictation confusion. patient apparently became very confused last night, pulling at lines, and getting agitated. had to be sedated. remains lethargic now with incoherent soft, confused speech. Exam/Review of Systems Exam Vitals Vital Signs Date Temp Pulse Resp B/P (MAP) Pulse Ox O2 O2 Flow FiO2 Time Delivery Rate 05/26/19 96.8 79 18 167/77 98 Room Air 11:42 (107) 05/25/19 2.0 04:28 Intake and Output 05/25/19 05/25/19 05/26/19 1515:00 23:00 07:00 IntakeIntake Total 340 ml 640 ml 1095 ml OutputOutput Total 250 ml 200 ml BalanceBalance 90 ml 640 ml 895 ml Exam General: altered, lethargic, confused, awake , frail , cachectic HEENT: moderate necrotic, but non oozing or infected temporooccipital cranial lesion PERRL. EOM intact Neck: supple CVS: S1, S2, RRR. no murmurs. no pain on chest wall palpation Lungs: CTA but diminished ++ L lung Abd: soft, nontender, +BS Ext: moving all extremities, no edema, diffuse msc wasting skin: multiple ecchymosis Results Results 24hrs Laboratory Tests Test 05/26/19 00:57 05/26/19 01:23 05/26/19 04:55 05/26/19 05:28 Bedside Glucose 40 *L 122 52 L 118 Test 05/26/19 05:31 05/26/19 08:24 White Blood Count 16.7 #H Red Blood Count 3.91 L Hemoglobin 11.1 L Hematocrit 35.0 L Mean Corpuscular 89.5 Volume Mean Corpuscular 28.4 L Hemoglobin Mean Corpuscular 31.7 L Hemoglobin Concent Red Cell 19.8 H Distribution Width Platelet Count 127 L Mean Platelet Volume 11.6 H Immature 0.800 H Granulocytes % Neutrophils % 90.3 H Lymphocytes % 4.5 L Monocytes % 4.1 Eosinophils % 0.1 Basophils % 0.2 Nucleated Red Blood 0.0 Cells % Immature 0.130 H Granulocytes # Neutrophils # 15.1 H Lymphocytes # 0.8 Monocytes # 0.7 Eosinophils # 0.0 Basophils # 0.0 Nucleated Red Blood 0.0 Cells # Erythrocyte 23 H Sedimentation Rate Sodium Level 139 Potassium Level 4.0 Chloride Level 105 Carbon Dioxide Level 22 Anion Gap 12 Blood Urea Nitrogen 31 H Creatinine 1.64 H Est Glomerular Filtrat Rate mL/min Glucose Level 138 # Hemoglobin A1c 5.3 Calcium Level 8.3 L Total Bilirubin 0.7 Direct Bilirubin 0.00 Indirect Bilirubin 0.7 Aspartate Amino 156 H Transf (AST/SGOT) Alanine 48 Aminotransferase (AL T/SGPT) Alkaline Phosphatase 1296 H Total Protein 5.8 L Albumin 2.6 L Globulin 3.20 Albumin/Globulin 0.81 Ratio Free Thyroxine Index Pending Thyroxine (T4) Pending Triiodothyronine 41.3 H (T3) Uptake Bedside Glucose 79 Medications Medication Current Medications IV Flush (NS 3 ml) 3 ml PER PROTOCOL IV ; Start 05/25/19 at 02:30 Ondansetron HCl (Zofran Inj) 4 mg Q6H PRN IV NAUSEA/VOMITING; Start 05/25/19 at 02:30 Acetaminophen (Tylenol Tab) 650 mg Q6H PRN PO .PAIN 1-3 OR TEMP; Start 05/25/19 at 02:30 Bisacodyl (Dulcolax) 5 mg DAILY PRN PO .CONSTIPATION; Start 05/25/19 at 02:30 Piperacillin Sod/ Tazobactam Sod 100 ml @ 200 mls/hr Q6 IVPB Last administered on 05/26/19at 05:24; Admin Dose 200 MLS/HR; Start 05/25/19 at 09:00 Docusate Sodium (Colace) 100 mg Q12 PO ; Start 05/26/19 at 21:00 Enoxaparin Sodium (Lovenox) 40 mg DAILY SC ; Start 05/27/19 at 09:00 Hydromorphone HCl (Dilaudid) 0.5 mg Q4H PRN IV SEVERE PAIN LEVEL 7-10 Last administered on 05/25/19at 22:08; Admin Dose 0.5 MG; Start 05/25/19 at 21:30 Diagnostic Test (Pha) (Accu-Chek) 1 ea 02 XX ; Start 05/26/19 at 02:00 Insulin Aspart (Novolog Insulin Pen) NOVOLOG *MILD* ALGORI... Q4 SC ; Start 05/26/19 at 01:00 Miscellaneous Information 1 ea NOTE XX ; Start 05/26/19 at 00:30 Glucose (Glutose) 15 gm Q15M PRN PO DECREASED GLUCOSE; Start 05/26/19 at 00:30 Glucose (Glutose) 22.5 gm Q15M PRN PO DECREASED GLUCOSE; Start 05/26/19 at 00:30 Dextrose (D50w Syringe) 25 ml Q15M PRN IV DECREASED GLUCOSE Last administered on 05/26/19at 04:58; Admin Dose 25 ML; Start 05/26/19 at 00:30 Dextrose (D50w Syringe) 50 ml Q15M PRN IV DECREASED GLUCOSE Last administered on 05/26/19at 01:03; Admin Dose 50 ML; Start 05/26/19 at 00:30 Glucagon (Glucagen) 1 mg Q15M PRN IM DECREASED GLUCOSE; Start 05/26/19 at 00:30 Glucose (Glutose) 15 gm Q15M PRN BUCCAL DECREASED GLUCOSE; Start 05/26/19 at 00:30 Dextrose/Sodium Chloride 1,000 ml @ 75 mls/hr [id number] IV Last administered on 05/26/19at 01:06; Admin Dose 75 MLS/HR; Start 05/26/19 at 01:30 Lorazepam (Ativan) 0.5 mg Q6H PRN IV AGITATION Last administered on 05/26/19at 11:12; Admin Dose 0.5 MG; Start 05/26/19 at 04:00 MISAEL JUNIOR May 26, 2019 11:50
[2019-05-26] MEDS ORDERED: LIDOCAINE 1% (MPF) 5 ML VIAL ONE (12:38)
[2019-05-26] MEDS ORDERED: HALOPERIDOL 5 MG INJ IM PRN (15:00)
--- NOTE | 2019-05-26 16:29 | PN ---
Date/Time of Note Date/Time of Note DATE: 05/26/19 TIME: 16:22 Assessment/Plan VTE Prophylaxis Risk score (from Ns)>0 risk: 9 SCD applied (from Ns): Yes Pharmacological prophylaxis: heparin Lines/Catheters IV C[facility]ter [facility] (from [facility]): Peripheral IV Urinary Cath still in place: No Assessment/Plan Assessment/Plan Discussed with Dr. Lopez. I favor a liver biopsy so that a diagnosis can be obtained and so that there is adequate material for genomic studies to be done, which would guide treatment if it were to be given. Neither she nor I have been able to reach family and he is not coherent enough to decide on treatment. 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 Biopsy to be planned and then decisions can be made. Note that he has a poor performance status, poor nutritional status and is elderly. A comfort only approach may be reasonable but I would not be comfortable making that decision without involving the family. Result Diagram: 05/26/19 0531 05/26/19 0531 Results 24hrs Laboratory Tests Test 05/26/19 00:57 05/26/19 01:23 05/26/19 04:55 05/26/19 05:28 Bedside Glucose 40 *L 122 52 L 118 Test 05/26/19 05:31 05/26/19 08:24 05/26/19 11:57 White Blood Count 16.7 #H Red Blood Count 3.91 L Hemoglobin 11.1 L Hematocrit 35.0 L Mean Corpuscular 89.5 Volume Mean Corpuscular 28.4 L Hemoglobin Mean Corpuscular 31.7 L Hemoglobin Concent Red Cell 19.8 H Distribution Width Platelet Count 127 L Mean Platelet Volume 11.6 H Immature 0.800 H Granulocytes % Neutrophils % 90.3 H Lymphocytes % 4.5 L Monocytes % 4.1 Eosinophils % 0.1 Basophils % 0.2 Nucleated Red Blood 0.0 Cells % Immature 0.130 H Granulocytes # Neutrophils # 15.1 H Lymphocytes # 0.8 Monocytes # 0.7 Eosinophils # 0.0 Basophils # 0.0 Nucleated Red Blood 0.0 Cells # Erythrocyte 23 H Sedimentation Rate Sodium Level 139 Potassium Level 4.0 Chloride Level 105 Carbon Dioxide Level 22 Anion Gap 12 Blood Urea Nitrogen 31 H Creatinine 1.64 H Est Glomerular Filtrat Rate mL/min Glucose Level 138 # Hemoglobin A1c 5.3 Calcium Level 8.3 L Total Bilirubin 0.7 Direct Bilirubin 0.00 Indirect Bilirubin 0.7 Aspartate Amino 156 H Transf (AST/SGOT) Alanine 48 Aminotransferase (AL T/SGPT) Alkaline Phosphatase 1296 H Total Protein 5.8 L Albumin 2.6 L Globulin 3.20 Albumin/Globulin 0.81 Ratio Free Thyroxine Index Pending Thyroxine (T4) Pending Triiodothyronine 41.3 H (T3) Uptake Bedside Glucose 79 74 Subjective 24 Hr Interval Summary Free Text/Dictation Pt is alert but more confused today. Exam/Review of Systems Exam Vitals Vital Signs Date Temp Pulse Resp B/P (MAP) Pulse Ox O2 O2 Flow FiO2 Time Delivery Rate 05/26/19 96.6 79 20 147/74 97 Room Air 15:27 (98) 05/25/19 2.0 04:28 Intake and Output 05/25/19 05/25/19 05/26/19 1414:59 22:59 06:59 IntakeIntake Total 340 ml 640 ml 1095 ml OutputOutput Total 250 ml 200 ml BalanceBalance 90 ml 640 ml 895 ml Constitutional: alert, other (confused) Head: other (scalp tumor) Eyes: nl conjunctiva ENMT: other (poor dentition) Neck: supple Respiratory: clear to auscultation Cardiovascular: regular rate and rhythm Gastrointestinal: hepatomegaly (hard, nodular liver) Musculoskeletal: other (depleted muscle mass) Neurological: confused Lymph: nl lymph nodes Results Results 24hrs Laboratory Tests Test 05/26/19 00:57 05/26/19 01:23 05/26/19 04:55 05/26/19 05:28 Bedside Glucose 40 *L 122 52 L 118 Test 05/26/19 05:31 05/26/19 08:24 05/26/19 11:57 White Blood Count 16.7 #H Red Blood Count 3.91 L Hemoglobin 11.1 L Hematocrit 35.0 L Mean Corpuscular 89.5 Volume Mean Corpuscular 28.4 L Hemoglobin Mean Corpuscular 31.7 L Hemoglobin Concent Red Cell 19.8 H Distribution Width Platelet Count 127 L Mean Platelet Volume 11.6 H Immature 0.800 H Granulocytes % Neutrophils % 90.3 H Lymphocytes % 4.5 L Monocytes % 4.1 Eosinophils % 0.1 Basophils % 0.2 Nucleated Red Blood 0.0 Cells % Immature 0.130 H Granulocytes # Neutrophils # 15.1 H Lymphocytes # 0.8 Monocytes # 0.7 Eosinophils # 0.0 Basophils # 0.0 Nucleated Red Blood 0.0 Cells # Erythrocyte 23 H Sedimentation Rate Sodium Level 139 Potassium Level 4.0 Chloride Level 105 Carbon Dioxide Level 22 Anion Gap 12 Blood Urea Nitrogen 31 H Creatinine 1.64 H Est Glomerular Filtrat Rate mL/min Glucose Level 138 # Hemoglobin A1c 5.3 Calcium Level 8.3 L Total Bilirubin 0.7 Direct Bilirubin 0.00 Indirect Bilirubin 0.7 Aspartate Amino 156 H Transf (AST/SGOT) Alanine 48 Aminotransferase (AL T/SGPT) Alkaline Phosphatase 1296 H Total Protein 5.8 L Albumin 2.6 L Globulin 3.20 Albumin/Globulin 0.81 Ratio Free Thyroxine Index Pending Thyroxine (T4) Pending Triiodothyronine 41.3 H (T3) Uptake Bedside Glucose 79 74 Medications Medication Current Medications IV Flush (NS 3 ml) 3 ml PER PROTOCOL IV ; Start 05/25/19 at 02:30 Ondansetron HCl (Zofran Inj) 4 mg Q6H PRN IV NAUSEA/VOMITING; Start 05/25/19 at 02:30 Acetaminophen (Tylenol Tab) 650 mg Q6H PRN PO .PAIN 1-3 OR TEMP; Start 05/25/19 at 02:30 Bisacodyl (Dulcolax) 5 mg DAILY PRN PO .CONSTIPATION; Start 05/25/19 at 02:30 Piperacillin Sod/ Tazobactam Sod 100 ml @ 200 mls/hr Q6 IVPB Last administered on 05/26/19at 13:40; Admin Dose 200 MLS/HR; Start 05/25/19 at 09:00 Docusate Sodium (Colace) 100 mg Q12 PO ; Start 05/26/19 at 21:00 Hydromorphone HCl (Dilaudid) 0.5 mg Q4H PRN IV SEVERE PAIN LEVEL 7-10 Last administered on 05/25/19at 22:08; Admin Dose 0.5 MG; Start 05/25/19 at 21:30 Diagnostic Test (Pha) (Accu-Chek) 1 ea 02 XX ; Start 05/26/19 at 02:00 Insulin Aspart (Novolog Insulin Pen) NOVOLOG *MILD* ALGORI... Q4 SC ; Start 05/26/19 at 01:00 Miscellaneous Information 1 ea NOTE XX ; Start 05/26/19 at 00:30 Glucose (Glutose) 15 gm Q15M PRN PO DECREASED GLUCOSE; Start 05/26/19 at 00:30 Glucose (Glutose) 22.5 gm Q15M PRN PO DECREASED GLUCOSE; Start 05/26/19 at 00:30 Dextrose (D50w Syringe) 25 ml Q15M PRN IV DECREASED GLUCOSE Last administered on 05/26/19at 04:58; Admin Dose 25 ML; Start 05/26/19 at 00:30 Dextrose (D50w Syringe) 50 ml Q15M PRN IV DECREASED GLUCOSE Last administered on 05/26/19at 01:03; Admin Dose 50 ML; Start 05/26/19 at 00:30 Glucagon (Glucagen) 1 mg Q15M PRN IM DECREASED GLUCOSE; Start 05/26/19 at 00:30 Glucose (Glutose) 15 gm Q15M PRN BUCCAL DECREASED GLUCOSE; Start 05/26/19 at 00:30 Dextrose/Sodium Chloride 1,000 ml @ 75 mls/hr [id number] IV Last administered on 05/26/19at 01:06; Admin Dose 75 MLS/HR; Start 05/26/19 at 01:30 Lorazepam (Ativan) 0.5 mg Q6H PRN IV AGITATION Last administered on 05/26/19at 1 1:12; Admin Dose 0.5 MG; Start 05/26/19 at 04:00 Heparin Sodium (Porcine) (Heparin (5000 Units/1ml)) 5,000 unit BID SC ; Start 05/27/19 at 09:00 Haloperidol (Haldol) 3 mg Q6H PRN IM agitation and agression; Start 05/26/19 at 15:00 MARIXA MANCINI MD May 26, 2019 16:29
[2019-05-26] MEDS: DOCUSATE SODIUM 100 MG CAP PO SCH (20:25)
[2019-05-27 00:19] VITALS: BP 163/79; PULSE 89; RESP 18
[2019-05-27] MEDS: INSULIN ASPART [NOVOLOG] 3 ML PEN SC SCH ×6 (00:44→20:48)
[2019-05-27] MEDS: ACCU-CHEK XX SCH (00:45)
[2019-05-27] MEDS: LORAZEPAM 2 MG INJ IV PRN (02:01)
[2019-05-27] MEDS: DEXTROSE 5%-0.45% NACL 1,000 ML IV SCH ×2 (04:10→12:21)
[2019-05-27 04:13] VITALS: BP 175/83; PULSE 81; RESP 18
[2019-05-27] MEDS: PIPER-TAZO 3.375 GM IV (PMX) 100 ML IVPB SCH ×3 (05:00→20:50)
[2019-05-27 07:34] VITALS: BP 165/85; PULSE 88; RESP 18
[2019-05-27] MEDS ORDERED: ENOXAPARIN 40 MG/0.4 ML SYG SC SCH (09:00)
[2019-05-27] MEDS: DOCUSATE SODIUM 100 MG CAP PO SCH ×2 (09:00→20:50)
--- NOTE | 2019-05-27 09:01 | CONS ---
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 I made very clear to him that when patient could make decisions on his own behalf he refuses any diagnostic work-up including biopsies. Patient very clear he did not want me to contact his children only grandson I discussed this with the grandson who states he is going to contact patient's children anyway but in spite of that patient was able to make the decisions on his own behalf. I have made a suggestion for hospice care either in a senior care facility or at home at that point patient's grandson began to cry over the phone. I did ask him if I can have hospice contact him he consented yes I believe if grandson decides on hospice care at home this should be worked out as soon as possible. At this point we should not speak to patient's sons any other family member per patient's request when he could make that demand. Consultation Date/Type/Reason Admit Date/Time May 25, 2019 at 02:29 Date/Time of Note DATE: 05/27/19 TIME: 08:59 Hx of Present Illness This is an 83-year-old male who was admitted to [facility] on May 25, 2019 this patient is a debilitated dehydrated malnourished male who lives at home with his grandson who states that he has been slowly deteriorating over the last couple weeks and has stopped eating prior to this hospitalization. However patient was able to make all the decisions on his own behalf and has refused work-up for presumed lung cancer and this was verified once again by the admitting physician here at [facility] admission. Comorbid diagnoses include hypertension diabetes hyperlipidemia patient complains of lower abdominal discomfort today he is not able to give me a clear past medical history he is more altered than yesterday. On admission he was found to have a suspicious lung mass please refer to CT scan which shows [address] large left upper lobe hilar mass with satellite lesions in the left upper lobe as well as extensive mediastinal lymphadenopathy concerning for metastatic primary lung cancer #2 large left pleural effusion and atelectasis of most of the left lobe. Additionally CT scan of his abdomen and pelvis most significant for enlarged liver with multiple poorly defined hypodense masses suspicious for metastatic disease next abdominal lymphadenopathy including a necrotic appearing peripheral lymph node mild abdominal and pelvic ascites and other changes however the above most consistent with metastatic disease. We do not have results of a CT scan of the head. Patient has been seen by oncology physician with note that patient has a very poor performance status poor nutritional status and is elderly and considered a comfort care approach only may be reasonable. In speaking to patient today he has told me he only wants me to contact his grandson not sons. Past Medical History Medical History: cancer, high cholesterol, hypertension Home Meds Reported Medications Lisinopril* (Lisinopril*) 40 Mg Tablet, 40 MG PO DAILY, #30 TAB 05/25/19 Pioglitazone Hcl* (Pioglitazone Hcl*) 45 Mg Tablet, 45 MG PO DAILY, TAB 05/25/19 Cholecalciferol (Vitamin D3) 1,000 Unit Capsule, 1000 UNIT PO DAILY, CAP 05/25/19 Rosuvastatin Calcium* (Crestor*) 10 Mg Tablet, 10 MG PO QHS, #30 TAB 05/25/19 Tramadol Hcl* (Ultram*) 50 Mg Tablet, 50 MG PO Q6H PRN for PAIN, TAB 05/25/19 Pioglitazone Hcl* (Pioglitazone Hcl*) 45 Mg Tablet, 45 MG PO DAILY, TAB 05/25/19 Glipizide* (Glipizide*) 10 Mg Tablet, 10 MG PO DAILY, TAB 05/25/19 Benazepril Hcl* (Benazepril Hcl*) 20 Mg Tablet, 20 MG PO DAILY, #30 TAB 05/25/19 Metformin* (Glucophage*) 1,000 Mg Tablet, 1000 MG PO BID, #60 TAB 05/25/19 Medications Current Medications IV Flush (NS 3 ml) 3 ml PER PROTOCOL IV ; Start 05/25/19 at 02:30 Ondansetron HCl (Zofran Inj) 4 mg Q6H PRN IV NAUSEA/VOMITING; Start 05/25/19 at 02:30 Acetaminophen (Tylenol Tab) 650 mg Q6H PRN PO .PAIN 1-3 OR TEMP; Start 05/25/19 at 02:30 Bisacodyl (Dulcolax) 5 mg DAILY PRN PO .CONSTIPATION; Start 05/25/19 at 02:30 Piperacillin Sod/ Tazobactam Sod 100 ml @ 200 mls/hr Q6 IVPB Last administered on 05/27/19at 05:00; Admin Dose 200 MLS/HR; Start 05/25/19 at 09:00 Docusate Sodium (Colace) 100 mg Q12 PO ; Start 05/26/19 at 21:00 Hydromorphone HCl (Dilaudid) 0.5 mg Q4H PRN IV SEVERE PAIN LEVEL 7-10 Last administered on 05/25/19at 22:08; Admin Dose 0.5 MG; Start 05/25/19 at 21:30 Diagnostic Test (Pha) (Accu-Chek) 1 ea 02 XX ; Start 05/26/19 at 02:00 Insulin Aspart (Novolog Insulin Pen) NOVOLOG *MILD* ALGORI... Q4 SC ; Start 05/26/19 at 01:00 Miscellaneous Information 1 ea NOTE XX ; Start 05/26/19 at 00:30 Glucose (Glutose) 15 gm Q15M PRN PO DECREASED GLUCOSE; Start 05/26/19 at 00:30 Glucose (Glutose) 22.5 gm Q15M PRN PO DECREASED GLUCOSE; Start 05/26/19 at 00:30 Dextrose (D50w Syringe) 25 ml Q15M PRN IV DECREASED GLUCOSE Last administered on 05/26/19at 04:58; Admin Dose 25 ML; Start 05/26/19 at 00:30 Dextrose (D50w Syringe) 50 ml Q15M PRN IV DECREASED GLUCOSE Last administered on 05/26/19at 01:03; Admin Dose 50 ML; Start 05/26/19 at 00:30 Glucagon (Glucagen) 1 mg Q15M PRN IM DECREASED GLUCOSE; Start 05/26/19 at 00:30 Glucose (Glutose) 15 gm Q15M PRN BUCCAL DECREASED GLUCOSE; Start 05/26/19 at 00:30 Dextrose/Sodium Chloride 1,000 ml @ 75 mls/hr [id number] IV Last administered on 05/26/19at 23:23; Admin Dose 75 MLS/HR; Start 05/26/19 at 01:30 Lorazepam (Ativan) 0.5 mg Q6H PRN IV AGITATION Last administered on 05/27/19at 02:01; Admin Dose 0.5 MG; Start 05/26/19 at 04:00 Heparin Sodium (Porcine) (Heparin (5000 Units/1ml)) 5,000 unit BID SC ; Start 05/27/19 at 09:00 Haloperidol (Haldol) 3 mg Q6H PRN IM agitation and agression Last administered on 05/26/19at 16:24; Admin Dose 3 MG; Start 05/26/19 at 15:00 Allergies: Coded Allergies: No Known Allergy (Unverified , 05/25/19) Past Surgical History Past Surgical Hx: no surgical history, other (Unknown) Family History Significant Family History: other ( unknown) Social History Alcohol Use: none Smoking Status: Never smoker Drug Use: none Exam/Review of Systems Exam Vitals Vital Signs Date Temp Pulse Resp B/P (MAP) Pulse Ox O2 O2 Flow FiO2 Time Delivery Rate 05/27/19 97.5 88 18 165/85 92 07:34 (111) 05/26/19 Room Air 15:27 05/25/19 2.0 04:28 Intake and Output 05/26/19 05/26/19 05/27/19 1515:00 23:00 07:00 IntakeIntake Total 1000 ml 1700 ml BalanceBalance 1000 ml 1700 ml Constitutional: distress, frail, other (Minimally verbal confused) Psych: confusion Head: normocephalic, atraumatic Neck: supple, non-tender Respiratory: other (Minimal breath sounds left lung right lung is doing expiratory breath sounds no rales rhonchi wheezing or rubs) Cardiovascular: regular rate and rhythm, nl pulses; No bruits, No diastolic murmur, No edema, No gallop, No irregular rhythm, No jugular venous distention (JVD), No murmurs/extra sounds, No rub, No systolic murmur, No S3, No S4, No other Gastrointestinal: soft, nl liver, spleen, non-tender; No ascites, No bowel sounds, No distended, No firm, No hepatomegaly, No mass, No rebound or guarding, No splenomegaly, No surgical scars, No tender, No other Neurological: lethargic, other (Unable to participate in cranial nerve e xamination lethargic oriented x0 nonpurposeful movements of upper and lower extremities.) Results Result Diagram: 05/27/19 0512 05/27/19 0512 Results 24hrs Laboratory Tests Test 05/26/19 11:57 05/26/19 17:13 05/26/19 20:29 05/27/19 00:41 Bedside Glucose 74 85 91 98 Test 05/27/19 04:58 05/27/19 05:12 05/27/19 08:16 Bedside Glucose 96 88 White Blood Count 15.2 H Red Blood Count 4.13 L Hemoglobin 11.5 L Hematocrit 36.8 L Mean Corpuscular 89.1 Volume Mean Corpuscular 27.8 L Hemoglobin Mean Corpuscular 31.3 L Hemoglobin Concent Red Cell 20.2 H Distribution Width Platelet Count 129 L Mean Platelet Volume 12.2 H Immature 0.700 H Granulocytes % Neutrophils % 88.1 H Lymphocytes % 6.6 L Monocytes % 4.3 Eosinophils % 0.1 Basophils % 0.2 Nucleated Red Blood 0.0 Cells % Immature 0.110 H Granulocytes # Neutrophils # 13.4 H Lymphocytes # 1.0 Monocytes # 0.7 Eosinophils # 0.0 Basophils # 0.0 Nucleated Red Blood 0.0 Cells # Sodium Level 141 Potassium Level 3.9 Chloride Level 107 Carbon Dioxide Level 24 Anion Gap 10 Blood Urea Nitrogen 29 H Creatinine 1.80 H Est Glomerular Filtrat Rate mL/min Glucose Level 99 Calcium Level 8.2 L Total Bilirubin 0.7 Direct Bilirubin 0.00 Indirect Bilirubin 0.7 Aspartate Amino 139 H Transf (AST/SGOT) Alanine 46 Aminotransferase (AL T/SGPT) Alkaline Phosphatase 1368 H Total Protein 6.2 Albumin 2.6 L Globulin 3.60 H Albumin/Globulin 0.72 Ratio Medications Medication Current Medications IV Flush (NS 3 ml) 3 ml PER PROTOCOL IV ; Start 05/25/19 at 02:30 Ondansetron HCl (Zofran Inj) 4 mg Q6H PRN IV NAUSEA/VOMITING; Start 05/25/19 at 02:30 Acetaminophen (Tylenol Tab) 650 mg Q6H PRN PO .PAIN 1-3 OR TEMP; Start 05/25/19 at 02:30 Bisacodyl (Dulcolax) 5 mg DAILY PRN PO .CONSTIPATION; Start 05/25/19 at 02:30 Piperacillin Sod/ Tazobactam Sod 100 ml @ 200 mls/hr Q6 IVPB Last administered on 05/27/19at 05:00; Admin Dose 200 MLS/HR; Start 05/25/19 at 09:00 Docusate Sodium (Colace) 100 mg Q12 PO ; Start 05/26/19 at 21:00 Hydromorphone HCl (Dilaudid) 0.5 mg Q4H PRN IV SEVERE PAIN LEVEL 7-10 Last administered on 05/25/19at 22:08; Admin Dose 0.5 MG; Start 05/25/19 at 21:30 Diagnostic Test (Pha) (Accu-Chek) 1 ea 02 XX ; Start 05/26/19 at 02:00 Insulin Aspart (Novolog Insulin Pen) NOVOLOG *MILD* ALGORI... Q4 SC ; Start 05/26/19 at 01:00 Miscellaneous Information 1 ea NOTE XX ; Start 05/26/19 at 00:30 Glucose (Glutose) 15 gm Q15M PRN PO DECREASED GLUCOSE; Start 05/26/19 at 00:30 Glucose (Glutose) 22.5 gm Q15M PRN PO DECREASED GLUCOSE; Start 05/26/19 at 00:30 Dextrose (D50w Syringe) 25 ml Q15M PRN IV DECREASED GLUCOSE Last administered on 05/26/19at 04:58; Admin Dose 25 ML; Start 05/26/19 at 00:30 Dextrose (D50w Syringe) 50 ml Q15M PRN IV DECREASED GLUCOSE Last administered on 05/26/19at 01:03; Admin Dose 50 ML; Start 05/26/19 at 00:30 Glucagon (Glucagen) 1 mg Q15M PRN IM DECREASED GLUCOSE; Start 05/26/19 at 00:30 Glucose (Glutose) 15 gm Q15M PRN BUCCAL DECREASED GLUCOSE; Start 05/26/19 at 00:30 Dextrose/Sodium Chloride 1,000 ml @ 75 mls/hr [id number] IV Last administered on 05/26/19at 23:23; Admin Dose 75 MLS/HR; Start 05/26/19 at 01:30 Lorazepam (Ativan) 0.5 mg Q6H PRN IV AGITATION Last administered on 05/27/19at 02:01; Admin Dose 0.5 MG; Start 05/26/19 at 04:00 Heparin Sodium (Porcine) (Heparin (5000 Units/1ml)) 5,000 unit BID SC ; Start 05/27/19 at 09:00 Haloperidol (Haldol) 3 mg Q6H PRN IM agitation and agression Last administered on 05/26/19at 16:24; Admin Dose 3 MG; Start 05/26/19 at 15:00 BEVERLY LIEBERMAN May 27, 2019 09:01
--- NOTE | 2019-05-27 10:51 | PN ---
Date/Time of Note Date/Time of Note DATE: 05/27/19 TIME: 10:40 Assessment/Plan VTE Prophylaxis Risk score (from Nsg)>0 risk: 8 SCD applied (from Nsg): Yes Pharmacological prophylaxis: heparin Lines/Catheters IV Catheter Type (from Nrsg): Peripheral IV Urinary Cath still in place: No Assessment/Plan Hospital Course 83-year-old male with a past medical history of hypertension, diabetes mellitus, hyperlipidemia and was a [place] who presents to the presented to the emergency department with complaints of weakness and generalized abdominal pain for the last few weeks currently managed as follows: Large left upper lobe/hilar mass with satellite lesions in the left upper lobe as well as extensive mediastinal lymphadenopathy concerning for metastatic primary lung cancer. Large left pleural effusion and atelectasis of most of the left lower lobe. Moderately sized necrotic cranial lesion -patient reports this was said to be benign at DC, will request records -planned for excision 06/12/19 at the [place] Enlarged liver with multiple poorly defined hypodense masses suspicious for a metastatic disease. -alk phos levels also significantly elevated Hypertension Diabetes Dyslipidemia Acute renal insufficiency: creatinine levels trending up again Sepsis with bandemia vs SIRS -however high probability of underlying obstructive pna, continue empiric Zosyn -improving Cholelithiasis without cholecystitis Cachexia Chronic dementia? with sundowning Acute encephalopathy (toxic metabolic, probable brain mets?) Plan: Patient was to do liver biopsy, but grandson yet to sign the consent after speaking with palliative care physician. He would like to discuss with his grandfather per nursing report, to see if this is something that he would want to pursue. Unfortunately at this time he does not look like the patient is able to participate with his decision-making process, I tried to reach grandson via telephone and left a message. I will follow-up with him. In the interim, patient remains obtunded, remains n.p.o. with gentle hydration. Creatinine levels trending up, will get renal ultrasound, Mckeon catheter has been placed, will order repeat urinalysis. Appreciate all consultants including palliative care input, apparently grandson is willing to discuss with hospice and see what they can offer, decision has not been made yet, but patient remains a DO NOT RESUSCITATE. Patient has had no arrhythmic abnormalities, will downgrade to [facility] for continued monitoring and management. Supportive care Result Diagram: 05/27/19 0512 05/27/19 0512 Results 24hrs Laboratory Tests Test 05/26/19 11:57 05/26/19 17:13 05/26/19 20:29 05/27/19 00:41 Bedside Glucose 74 85 91 98 Test 05/27/19 04:58 05/27/19 05:12 05/27/19 08:16 Bedside Glucose 96 88 White Blood Count 15.2 H Red Blood Count 4.13 L Hemoglobin 11.5 L Hematocrit 36.8 L Mean Corpuscular 89.1 Volume Mean Corpuscular 27.8 L Hemoglobin Mean Corpuscular 31.3 L Hemoglobin Concent Red Cell 20.2 H Distribution Width Platelet Count 129 L Mean Platelet Volume 12.2 H Immature 0.700 H Granulocytes % Neutrophils % 88.1 H Lymphocytes % 6.6 L Monocytes % 4.3 Eosinophils % 0.1 Basophils % 0.2 Nucleated Red Blood 0.0 Cells % Immature 0.110 H Granulocytes # Neutrophils # 13.4 H Lymphocytes # 1.0 Monocytes # 0.7 Eosinophils # 0.0 Basophils # 0.0 Nucleated Red Blood 0.0 Cells # Sodium Level 141 Potassium Level 3.9 Chloride Level 107 Carbon Dioxide Level 24 Anion Gap 10 Blood Urea Nitrogen 29 H Creatinine 1.80 H Est Glomerular Filtrat Rate mL/min Glucose Level 99 Calcium Level 8.2 L Total Bilirubin 0.7 Direct Bilirubin 0.00 Indirect Bilirubin 0.7 Aspartate Amino 139 H Transf (AST/SGOT) Alanine 46 Aminotransferase (AL T/SGPT) Alkaline Phosphatase 1368 H Total Protein 6.2 Albumin 2.6 L Globulin 3.60 H Albumin/Globulin 0.72 Ratio Subjective 24 Hr Interval Summary Free Text/Dictation medicated and sleeping deeply Exam/Review of Systems Exam Vitals Vital Signs Date Temp Pulse Resp B/P (MAP) Pulse Ox O2 O2 Flow FiO2 Time Delivery Rate 05/27/19 97.5 88 18 165/85 92 07:34 (111) 05/26/19 Room Air 15:27 05/25/19 2.0 04:28 Intake and Output 05/26/19 05/26/19 05/27/19 1414:59 22:59 06:59 IntakeIntake Total 1000 ml 1700 ml BalanceBalance 1000 ml 1700 ml Exam General: sleeping deeply, barely arousable , frail , cachectic HEENT: moderate necrotic, but non oozing or infected temporooccipital cranial lesion Neck: supple CVS: S1, S2, RRR. no murmurs. no pain on chest wall palpation Lungs: CTA but diminished ++ L lung Abd: soft, nontender, +BS Ext: moving all extremities, no edema, diffuse msc wasting skin: multiple ecchymosis Results Results 24hrs Laboratory Tests Test 05/26/19 11:57 05/26/19 17:13 05/26/19 20:29 05/27/19 00:41 Bedside Glucose 74 85 91 98 Test 05/27/19 04:58 05/27/19 05:12 05/27/19 08:16 Bedside Glucose 96 88 White Blood Count 15.2 H Red Blood Count 4.13 L Hemoglobin 11.5 L Hematocrit 36.8 L Mean Corpuscular 89.1 Volume Mean Corpuscular 27.8 L Hemoglobin Mean Corpuscular 31.3 L Hemoglobin Concent Red Cell 20.2 H Distribution Width Platelet Count 129 L Mean Platelet Volume 12.2 H Immature 0.700 H Granulocytes % Neutrophils % 88.1 H Lymphocytes % 6.6 L Monocytes % 4.3 Eosinophils % 0.1 Basophils % 0.2 Nucleated Red Blood 0.0 Cells % Immature 0.110 H Granulocytes # Neutrophils # 13.4 H Lymphocytes # 1.0 Monocytes # 0.7 Eosinophils # 0.0 Basophils # 0.0 Nucleated Red Blood 0.0 Cells # Sodium Level 141 Potassium Level 3.9 Chloride Level 107 Carbon Dioxide Level 24 Anion Gap 10 Blood Urea Nitrogen 29 H Creatinine 1.80 H Est Glomerular Filtrat Rate mL/min Glucose Level 99 Calcium Level 8.2 L Total Bilirubin 0.7 Direct Bilirubin 0.00 Indirect Bilirubin 0.7 Aspartate Amino 139 H Transf (AST/SGOT) Alanine 46 Aminotransferase (AL T/SGPT) Alkaline Phosphatase 1368 H Total Protein 6.2 Albumin 2.6 L Globulin 3.60 H Albumin/Globulin 0.72 Ratio Imaging Imaging PROCEDURE: US guided left thoracentesis. CLINICAL INDICATION: Shortness of breath. Left pleural effusion. TECHNIQUE: Prior to the procedure, informed consent was obtained. The risks, benefits, and alternatives were explained to the patient or the patient's family, including but not limited to bleeding, infection, pain, visceral or vascular damage, shock, pneumothorax, chest tube placement, air embolism, and . The patient or the patient's family understood the risks and the alternatives and wished to proceed with the study. Informed written consent was obtained. A procedural pause was performed. The patient's name, date of , and procedure to be performed were verified. Ultrasound of the left hemithorax was performed in the axial and sagittal planes. A small left pleural effusion is noted. Utilizing ultrasound guidance, optimal location for entry to the pleural cavity was ascertained. The overlying skin was prepped and draped in the usual sterile fashion. Approximately 10 ml of 1% Xylocaine was injected locally for pain control. However, the patient was in lateral decubitus position which may be effusion later and unable to be aspirated. Then, the patient was placed in the upright position which demonstrated a small pleural effusion which was too small to be aspirated. COMPARISON: None. FINDINGS: Initial ultrasound demonstrates a small left pleural effusion. IMPRESSION: Small left pleural effusion. Not enough to be safely aspirated. Please do another consultation if the effusion becomes larger. RPTAT: QQ Physician Leela Date Time Electronically viewed and signed by Physician Leela on 05/27/2019 08:27 RD/ CC: MISAEL JUNIOR [id number] Medications Medication Current Medications IV Flush (NS 3 ml) 3 ml PER PROTOCOL IV ; Start 05/25/19 at 02:30 Ondansetron HCl (Zofran Inj) 4 mg Q6H PRN IV NAUSEA/VOMITING; Start 05/25/19 at 02:30 Acetaminophen (Tylenol Tab) 650 mg Q6H PRN PO .PAIN 1-3 OR TEMP; Start 05/25/19 at 02:30 Bisacodyl (Dulcolax) 5 mg DAILY PRN PO .CONSTIPATION; Start 05/25/19 at 02:30 Piperacillin Sod/ Tazobactam Sod 100 ml @ 200 mls/hr Q6 IVPB Last administered on 05/27/19at 05:00; Admin Dose 200 MLS/HR; Start 05/25/19 at 09:00 Docusate Sodium (Colace) 100 mg Q12 PO ; Start 05/26/19 at 21:00 Diagnostic Test (Pha) (Accu-Chek) 1 ea 02 XX ; Start 05/26/19 at 02:00 Insulin Aspart (Novolog Insulin Pen) NOVOLOG *MILD* ALGORI... Q4 SC ; Start 05/26/19 at 01:00 Miscellaneous Information 1 ea NOTE XX ; Start 05/26/19 at 00:30 Glucose (Glutose) 15 gm Q15M PRN PO DECREASED GLUCOSE; Start 05/26/19 at 00:30 Glucose (Glutose) 22.5 gm Q15M PRN PO DECREASED GLUCOSE; Start 05/26/19 at 00:3 0 Dextrose (D50w Syringe) 25 ml Q15M PRN IV DECREASED GLUCOSE Last administered on 05/26/19at 04:58; Admin Dose 25 ML; Start 05/26/19 at 00:30 Dextrose (D50w Syringe) 50 ml Q15M PRN IV DECREASED GLUCOSE Last administered on 05/26/19at 01:03; Admin Dose 50 ML; Start 05/26/19 at 00:30 Glucagon (Glucagen) 1 mg Q15M PRN IM DECREASED GLUCOSE; Start 05/26/19 at 00:30 Glucose (Glutose) 15 gm Q15M PRN BUCCAL DECREASED GLUCOSE; Start 05/26/19 at 00:30 Dextrose/Sodium Chloride 1,000 ml @ 75 mls/hr [id number] IV Last administered on 05/26/19at 23:23; Admin Dose 75 MLS/HR; Start 05/26/19 at 01:30 Heparin Sodium (Porcine) (Heparin (5000 Units/1ml)) 5,000 unit BID SC ; Start 05/27/19 at 09:00 MISAEL JUNIOR May 27, 2019 10:50
[2019-05-27 11:02] VITALS: BP 149/76; PULSE 79; RESP 20
[2019-05-27] MEDS: HEPARIN 5,000 UNIT/1 ML VIAL SC SCH ×2 (11:02→20:49)
--- NOTE | 2019-05-27 13:25 | QN ---
Documentation Comment Pt did not have biopsy due to consent issues. Pt is not able to make decisions and grandson is not ready to decide per the other notes that I reviewed. Certainly no active therapy would be started unless there is a pathology report available. It would be reasonable to decline a biopsy if no treatment would be accepted. If that is the choice, hospice intervention should be considered. MARIXA MANCINI MD May 27, 2019 13:25
[2019-05-27 13:30] VITALS: BP 138/74; PULSE 86; RESP 18
[2019-05-27] MEDS ORDERED: FENTAnyl 50 MCG/ML VIAL ONE (16:38)
[2019-05-27] MEDS ORDERED: LIDOCAINE 1% (MDV) 20 ML INJ ONE (16:38)
[2019-05-27 20:02] VITALS: BP 131/73; PULSE 87; RESP 18
[2019-05-27] MEDS ORDERED: PIPER-TAZO 3.375 GM IV (PMX) 100 ML ONE (20:11)
[2019-05-27] MEDS: BALSAM PERU/CASTOR OIL 60 GM TUBE TOP SCH (20:50)
[2019-05-28] MEDS: INSULIN ASPART [NOVOLOG] 3 ML PEN SC SCH ×7 (00:44→20:43)
[2019-05-28] MEDS: ACCU-CHEK XX SCH (00:45)
[2019-05-28] MEDS: DEXTROSE 5%-0.45% NACL 1,000 ML IV SCH ×3 (00:45→17:34)
[2019-05-28 02:15] VITALS: BP 130/67; PULSE 85; RESP 20
[2019-05-28] MEDS: PIPER-TAZO 3.375 GM IV (PMX) 100 ML IVPB SCH ×3 (05:14→20:37)
[2019-05-28] MEDS: DOCUSATE SODIUM 100 MG CAP PO SCH ×3 (08:52→20:44)
[2019-05-28] MEDS: HEPARIN 5,000 UNIT/1 ML VIAL SC SCH ×3 (08:54→20:42)
[2019-05-28] MEDS: BALSAM PERU/CASTOR OIL 60 GM TUBE TOP SCH ×2 (08:58→20:44)
--- NOTE | 2019-05-28 11:54 | QN ---
Documentation Comment Pt is the same and very debilitated appearing. No new suggestions from ye sterday although hospice continues to be the most likely option. MARIXA MANCINI MD May 28, 2019 11:54
[2019-05-28] MEDS: LIDOCAINE 5% PATCH TD SCH ×2 (14:30→17:35)
[2019-05-28] MEDS ORDERED: FUROSEMIDE 20 MG INJ IV ONE (14:30)
--- NOTE | 2019-05-28 14:38 | PN ---
Date/Time of Note Date/Time of Note DATE: 05/28/19 TIME: 13:14 Assessment/Plan VTE Prophylaxis Risk score (from Nsg)>0 risk: 6 SCD applied (from Nsg): Yes Pharmacological prophylaxis: heparin Lines/Catheters IV Catheter Type (from Nrsg): Saline Lock Urinary Cath still in place: No Assessment/Plan Hospital Course 83-year-old male with a past medical history of hypertension, diabetes mellitus, hyperlipidemia and was a [place] who presents to the presented to the emergency department with complaints of weakness and generalized abdominal pain for the last few weeks currently managed as follows: Large left upper lobe/hilar mass with satellite lesions in the left upper lobe as well as extensive mediastinal lymphadenopathy concerning for metastatic primary lung cancer. Large left pleural effusion and atelectasis of most of the left lower lobe. -Thoracentesis was attempted 2 days ago unsuccessfully -Incentive spirometer? Mild resp insufficiency -newly developing, patient has been on IVF for the last 2 days 2/2 being obtunded, will reduce volume now he's more alert and give 1 dose of lasix Moderately sized necrotic cranial lesion -patient reports this was said to be benign at [facility], will request records, however oncology team here states lesions looks very malignant -planned for excision 06/12/19 at the [facility] Enlarged liver with multiple poorly defined hypodense masses suspicious for a metastatic disease. -alk phos levels also significantly elevated -likely from lungs per oncology -s/p biopsy 05/27/19, f/u path Hypertension: controlled Diabetes: good control Dyslipidemia Acute renal insufficiency: creatinine levels trending up again Sepsis with bandemia vs SIRS -however high probability of underlying obstructive pna, continue empiric Zosyn -improving Cholelithiasis without cholecystitis Cachexia Chronic dementia? with -patient was treated with PRN ativan which made him obtunded for 2 days -avoid all mood altering drugs as much as possible -currently refusing labs and nursing interventions Acute encephalopathy (toxic metabolic) improved -patient is more alert and oriented, but still very lethargic, will get PT DNR/DNI Plan: * We will continue supportive care, diet and PT andf try to get patient back to previous baseline as we await liver biopsy results * Patient stating he doesn't want any aggressive interventions except for removal of his scalp lesion * Plan for discharge back to his own home with grandson by Friday with or without home hospice or HH * If patient remains lethargic however, may need SNF Prognosis : immediate prognosis is guarded, residential prognosis is poor. Result Diagram: 05/27/1951105/27/1912 Results 24hrs Laboratory Tests Test 05/27/19 17:49 05/27/19 20:45 05/28/19 00:44 05/28/19 05:14 Bedside Glucose 113 150 133 158 Test 05/28/19 08:48 Bedside Glucose 163 Subjective 24 Hr Interval Summary Free Text/Dictation awake, upset about change in his status, also stating he wants nothing done for the liver and lung mass but wants the lesion on his head removed. having visible resp distress and speaking in broken sentences Exam/Review of Systems Exam Vitals Vital Signs Date Temp Pulse Resp B/P (MAP) Pulse Ox O2 O2 Flow FiO2 Time Delivery Rate 05/28/19 97.0 85 20 130/67 97 Room Air 02:15 (88) 05/25/19 2.0 04:28 Intake and Output 05/27/19 05/27/19 05/28/19 1515:00 23:00 07:00 IntakeIntake Total 100 ml 1600 ml OutputOutput Total 200 ml 300 ml BalanceBalance -100 ml 1300 ml Exam General: frail , cachectic, chronically ill looking heavy breathing, speaking in broken sentences HEENT: moderate necrotic, but non oozing or infected temporooccipital cranial lesion covered in clean dressing Neck: supple CVS: S1, S2, RRR. no murmurs. no pain on chest wall palpation Lungs: CTA but diminished ++ L lung Abd: soft, nontender, +BS Ext: moving all extremities, no edema, diffuse msc wasting skin: multiple ecchymosis Results Results 24hrs Laboratory Tests Test 05/27/19 17:49 05/27/19 20:45 05/28/19 00:44 05/28/19 05:14 Bedside Glucose 113 150 133 158 Test 05/28/19 08:48 Bedside Glucose 163 Medications Medication Current Medications IV Flush (NS 3 ml) 3 ml PER PROTOCOL IV ; Start 05/25/19 at 02:30 Ondansetron HCl (Zofran Inj) 4 mg Q6H PRN IV NAUSEA/VOMITING; Start 05/25/19 at 02:30 Acetaminophen (Tylenol Tab) 650 mg Q6H PRN PO .PAIN 1-3 OR TEMP; Start 05/25/19 at 02:30 Bisacodyl (Dulcolax) 5 mg DAILY PRN PO .CONSTIPATION; Start 05/25/19 at 02:30 Docusate Sodium (Colace) 100 mg Q12 PO ; Start 05/26/19 at 21:00 Diagnostic Test (Pha) (Accu-Chek) 1 ea 02 XX ; Start 05/26/19 at 02:00 Insulin Aspart (Novolog Insulin Pen) NOVOLOG *MILD* ALGORI... Q4 SC Last administered on 05/28/19at 05:17; Admin Dose 1 UNIT; Start 05/26/19 at 01:00 Miscellaneous Information 1 ea NOTE XX ; Start 05/26/19 at 00:30 Glucose (Glutose) 15 gm Q15M PRN PO DECREASED GLUCOSE; Start 05/26/19 at 00:30 Glucose (Glutose) 22.5 gm Q15M PRN PO DECREASED GLUCOSE; Start 05/26/19 at 00:30 Dextrose (D50w Syringe) 25 ml Q15M PRN IV DECREASED GLUCOSE Last administered on 05/26/19at 04:58; Admin Dose 25 ML; Start 05/26/19 at 00:30 Dextrose (D50w Syringe) 50 ml Q15M PRN IV DECREASED GLUCOSE Last administered on 05/26/19at 01:03; Admin Dose 50 ML; Start 05/26/19 at 00:30 Glucagon (Glucagen) 1 mg Q15M PRN IM DECREASED GLUCOSE; Start 05/26/19 at 00:30 Glucose (Glutose) 15 gm Q15M PRN BUCCAL DECREASED GLUCOSE; Start 05/26/19 at 00:30 Dextrose/Sodium Chloride 1,000 ml @ 125 mls/hr Q8H IV Last administered on 05/28/19at 08:56; Admin Dose 125 MLS/HR; Start 05/26/19 at 01:30 Heparin Sodium (Porcine) (Heparin (5000 Units/1ml)) 5,000 unit BID SC Last administered on 05/27/19at 20:49; Admin Dose 5,000 UNIT; Start 05/27/19 at 09:00 Piperacillin Sod/ Tazobactam Sod 100 ml @ 200 mls/hr Q8 IVPB Last administered on 05/28/19at 05:14; Admin Dose 200 MLS/HR; Start 05/27/19 at 22:00 MISAEL JUNIOR May 28, 2019 13:24
[2019-05-28] MEDS: DICLOFENAC SODIUM 1% GEL 100 GM TUBE TP SCH ×3 (17:00→20:37)
--- NOTE | 2019-05-28 18:34 | CONS ---
Assessment/Plan Assessment/Plan Assessment/Plan (Daily) Stage IV lung cancer with a lung mass Would not recommend any aggressive measures with respect to treatment Continue conservative therapy possible chemotherapy for oncology Treatment of possible pleural effusion or pneumothorax Consultation Date/Type/Reason Admit Date/Time May 25, 2019 at 02:29 Date of Consultation: May 28, 2019 Type of Consult Thoracic surgery Reason for Consultation Lung mass Date/Time of Note DATE: 05/28/19 TIME: 18:31 Hx of Present Illness 83-year-old male with a history of stage IV lung cancer patient is now being admitted because of respiratory failure chest x-ray has shows a large mass in the lung patient does not want any aggressive measures and would like to proceed with conservative therapy 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 ENT: no complaints Respiratory: no complaints Cardiovascular: no complaints Gastrointestinal: no complaints Genitourinary: no complaints Musculoskeletal: no complaints Skin: no complaints Neurologic: no complaints Endocrine: no complaints Past Medical History Medical History: cancer, high cholesterol, hypertension Home Meds Reported Medications Lisinopril* (Lisinopril*) 40 Mg Tablet, 40 MG PO DAILY, #30 TAB 05/25/19 Pioglitazone Hcl* (Pioglitazone Hcl*) 45 Mg Tablet, 45 MG PO DAILY, TAB 05/25/19 Cholecalciferol (Vitamin D3) 1,000 Unit Capsule, 1000 UNIT PO DAILY, CAP 05/25/19 Rosuvastatin Calcium* (Crestor*) 10 Mg Tablet, 10 MG PO QHS, #30 TAB 05/25/19 Tramadol Hcl* (Ultram*) 50 Mg Tablet, 50 MG PO Q6H PRN for PAIN, TAB 05/25/19 Pioglitazone Hcl* (Pioglitazone Hcl*) 45 Mg Tablet, 45 MG PO DAILY, TAB 05/25/19 Glipizide* (Glipizide*) 10 Mg Tablet, 10 MG PO DAILY, TAB 05/25/19 Benazepril Hcl* (Benazepril Hcl*) 20 Mg Tablet, 20 MG PO DAILY, #30 TAB 05/25/19 Metformin* (Glucophage*) 1,000 Mg Tablet, 1000 MG PO BID, #60 TAB 05/25/19 Medications Current Medications IV Flush (NS 3 ml) 3 ml PER PROTOCOL IV ; Start 05/25/19 at 02:30 Ondansetron HCl (Zofran Inj) 4 mg Q6H PRN IV NAUSEA/VOMITING; Start 05/25/19 at 02:30 Acetaminophen (Tylenol Tab) 650 mg Q6H PRN PO .PAIN 1-3 OR TEMP; Start 05/25/19 at 02:30 Bisacodyl (Dulcolax) 5 mg DAILY PRN PO .CONSTIPATION; Start 05/25/19 at 02:30 Docusate Sodium (Colace) 100 mg Q12 PO ; Start 05/26/19 at 21:00 Diagnostic Test (Pha) (Accu-Chek) 1 ea 02 XX ; Start 05/26/19 at 02:00 Insulin Aspart (Novolog Insulin Pen) NOVOLOG *MILD* ALGORI... Q4 SC Last administered on 05/28/19at 05:17; Admin Dose 1 UNIT; Start 05/26/19 at 01:00 Miscellaneous Information 1 ea NOTE XX ; Start 05/26/19 at 00:30 Glucose (Glutose) 15 gm Q15M PRN PO DECREASED GLUCOSE; Start 05/26/19 at 00:30 Glucose (Glutose) 22.5 gm Q15M PRN PO DECREASED GLUCOSE; Start 05/26/19 at 00: 30 Dextrose (D50w Syringe) 25 ml Q15M PRN IV DECREASED GLUCOSE Last administered on 05/26/19at 04:58; Admin Dose 25 ML; Start 05/26/19 at 00:30 Dextrose (D50w Syringe) 50 ml Q15M PRN IV DECREASED GLUCOSE Last administered on 05/26/19at 01:03; Admin Dose 50 ML; Start 05/26/19 at 00:30 Glucagon (Glucagen) 1 mg Q15M PRN IM DECREASED GLUCOSE; Start 05/26/19 at 00:30 Glucose (Glutose) 15 gm Q15M PRN BUCCAL DECREASED GLUCOSE; Start 05/26/19 at 00:30 Dextrose/Sodium Chloride 1,000 ml @ 100 mls/hr Q10H IV Last administered on 05/28/19at 17:34; Admin Dose 100 MLS/HR; Start 05/26/19 at 01:30 Heparin Sodium (Porcine) (Heparin (5000 Units/1ml)) 5,000 unit BID SC Last administered on 05/27/19at 20:49; Admin Dose 5,000 UNIT; Start 05/27/19 at 09:00 Piperacillin Sod/ Tazobactam Sod 100 ml @ 200 mls/hr Q8 IVPB Last administered on 05/28/19at 13:49; Admin Dose 200 MLS/HR; Start 05/27/19 at 22:00 Diclofenac Sodium (Voltaren 1% Gel) 4 gm QID TP Last administered on 05/28/19at 17:34; Admin Dose 4 GM; Start 05/28/19 at 14:30 Lidocaine (Lidoderm) 1 patch DAILY TD ; Start 05/28/19 at 14:30 Allergies: Coded Allergies: No Known Allergy (Unverified , 05/25/19) Past Surgical History Past Surgical Hx: no surgical history, other (Unknown) Social History Alcohol Use: none Smoking Status: Never smoker Drug Use: none Exam/Review of Systems Exam Vitals Vital Signs Date Temp Pulse Resp B/P (MAP) Pulse Ox O2 O2 Flow FiO2 Time Delivery Rate 05/28/19 97.0 85 20 130/67 97 Room Air 02:15 (88) 05/25/19 2.0 04:28 Intake and Output 05/27/19 05/27/19 05/28/19 1515:00 23:00 07:00 IntakeIntake Total 100 ml 1600 ml OutputOutput Total 200 ml 300 ml BalanceBalance -100 ml 1300 ml Eyes: nl conjunctiva, EOMI, nl lids, nl sclera, PERRL ENMT: nl external ears & nose, nl lips & teeth, nl nasal mucosa & septum Neck: supple, non-tender Respiratory: clear to auscultation, normal air movement Cardiovascular: regular rate and rhythm, nl pulses Gastrointestinal: soft, nl liver, spleen, non-tender Musculoskeletal: nl extremities to inspection, nl gait and stance Extremities: normal pulses Neurological: CH[employer]OP[employer] IN[employer] II-XII intact, nl mental status, nl speech, nl strength Results Result Diagram: 05/28/19 1627 05/28/19 1627 Results 24hrs Laboratory Tests Test 05/27/19 20:45 05/28/19 00:44 05/28/19 05:14 05/28/19 08:48 Bedside Glucose 150 133 158 163 Test 05/28/19 16:27 05/28/19 17:37 White Blood Count 16.5 H Red Blood Count 4.33 L Hemoglobin 12.1 L Hematocrit 38.8 L Mean Corpuscular 89.6 Volume Mean Corpuscular 27.9 L Hemoglobin Mean Corpuscular 31.2 L Hemoglobin Concent Red Cell 20.6 H Distribution Width Platelet Count 126 L Mean Platelet Volume 11.9 H Immature 0.700 H Granulocytes % Neutrophils % 89.1 H Lymphocytes % 5.9 L Monocytes % 4.0 Eosinophils % 0.1 Basophils % 0.2 Nucleated Red Blood 0.0 Cells % Immature 0.120 H Granulocytes # Neutrophils # 14.8 H Lymphocytes # 1.0 Monocytes # 0.7 Eosinophils # 0.0 Basophils # 0.0 Nucleated Red Blood 0.0 Cells # Sodium Level 138 Potassium Level 3.5 Chloride Level 107 Carbon Dioxide Level 18 L Anion Gap 13 Blood Urea Nitrogen 28 H Creatinine 1.57 H Est Glomerular Filtrat Rate mL/min Glucose Level 179 Calcium Level 8.0 L Total Bilirubin 0.7 Direct Bilirubin 0.00 Indirect Bilirubin 0.7 Aspartate Amino 139 H Transf (AST/SGOT) Alanine 50 Aminotransferase (AL T/SGPT) Alkaline Phosphatase 1442 H Total Protein 6.3 Albumin 2.6 L Globulin 3.70 H Albumin/Globulin 0.70 Ratio Bedside Glucose 167 Medications Medication Current Medications IV Flush (NS 3 ml) 3 ml PER PROTOCOL IV ; Start 05/25/19 at 02:30 Ondansetron HCl (Zofran Inj) 4 mg Q6H PRN IV NAUSEA/VOMITING; Start 05/25/19 at 02:30 Acetaminophen (Tylenol Tab) 650 mg Q6H PRN PO .PAIN 1-3 OR TEMP; Start 05/25/19 at 02:30 Bisacodyl (Dulcolax) 5 mg DAILY PRN PO .CONSTIPATION; Start 05/25/19 at 02:30 Docusate Sodium (Colace) 100 mg Q12 PO ; Start 05/26/19 at 21:00 Diagnostic Test (Pha) (Accu-Chek) 1 ea 02 XX ; Start 05/26/19 at 02:00 Insulin Aspart (Novolog Insulin Pen) NOVOLOG *MILD* ALGORI... Q4 SC Last administered on 05/28/19at 05:17; Admin Dose 1 UNIT; Start 05/26/19 at 01:00 Miscellaneous Information 1 ea NOTE XX ; Start 05/26/19 at 00:30 Glucose (Glutose) 15 gm Q15M PRN PO DECREASED GLUCOSE; Start 05/26/19 at 00:30 Glucose (Glutose) 22.5 gm Q15M PRN PO DECREASED GLUCOSE; Start 05/26/19 at 00:30 Dextrose (D50w Syringe) 25 ml Q15M PRN IV DECREASED GLUCOSE Last administered on 05/26/19at 04:58; Admin Dose 25 ML; Start 05/26/19 at 00:30 Dextrose (D50w Syringe) 50 ml Q15M PRN IV DECREASED GLUCOSE Last administered on 05/26/19at 01:03; Admin Dose 50 ML; Start 05/26/19 at 00:30 Glucagon (Glucagen) 1 mg Q15M PRN IM DECREASED GLUCOSE; Start 05/26/19 at 00:30 Glucose (Glutose) 15 gm Q15M PRN BUCCAL DECREASED GLUCOSE; Start 05/26/19 at 00:30 Dextrose/Sodium Chloride 1,000 ml @ 100 mls/hr Q10H IV Last administered on 05/28/19at 17:34; Admin Dose 100 MLS/HR; Start 05/26/19 at 01:30 Heparin Sodium (Porcine) (Heparin (5000 Units/1ml)) 5,000 unit BID SC Last administered on 05/27/19at 20:49; Admin Dose 5,000 UNIT; Start 05/27/19 at 09:00 Piperacillin Sod/ Tazobactam Sod 100 ml @ 200 mls/hr Q8 IVPB Last administered on 05/28/19at 13:49; Admin Dose 200 MLS/HR; Start 05/27/19 at 22:00 Diclofenac Sodium (Voltaren 1% Gel) 4 gm QID TP Last administered on 05/28/19at 17:34; Admin Dose 4 GM; Start 05/28/19 at 14:30 Lidocaine (Lidoderm) 1 patch DAILY TD ; Start 05/28/19 at 14:30 VIKAS VILLATORO MD May 28, 2019 18:34
[2019-05-28 20:00] VITALS: BP 152/79; PULSE 86; RESP 18
[2019-05-29] MEDS: INSULIN ASPART [NOVOLOG] 3 ML PEN SC SCH ×6 (01:11→21:00)
[2019-05-29] MEDS: ACCU-CHEK XX SCH ×2 (01:12→21:39)
[2019-05-29 01:54] VITALS: BP 148/68; PULSE 78; RESP 18
[2019-05-29] MEDS: PIPER-TAZO 3.375 GM IV (PMX) 100 ML IVPB SCH ×3 (05:09→21:37)
[2019-05-29] MEDS ORDERED: DICLOFENAC SODIUM 1% GEL 100 GM TUBE TP ONE (07:00)
[2019-05-29] MEDS ORDERED: traMADol 50 MG TAB PO PRN (07:00)
[2019-05-29 08:00] VITALS: BP 140/66; PULSE 87; RESP 19
--- NOTE | 2019-05-29 08:22 | CONS ---
Assessment/Plan Assessment/Plan Assessment/Plan (Daily) PRELIMINARY MICROSCOPIC DIAGNOSIS: Liver mass, CT-guided needle core biopsies: -- Poorly-differentiated carcinoma (please see comment). IMPRESSION: 1. There is a large left pleural effusion. Small anterior left pneumothorax, unchanged from previous XR chest dated 05/28/2019. There is also compressive atelectasis of the most of the left lung. 2. There is a mass in the central portion of the atelectatic left lung. The margins of the mass or poorly defined on this noncontrast study. The margins are obscured by adjacent atelectatic lung. The lung mass mass measures approximately 6 cm in diameter. This is concerning for a neoplastic lung mass. 3. There is occlusion / compression of the left upper lobe bronchus, by the visualized left perihilar lung mass. 4. Direct invasion of the mediastinum at the level of the AP window noted by the adjacent pulmonary mass. Bulky mediastinal adenopathy noted, likely metastatic. 5. The liver is enlarged and demonstrates an irregular margin suggesting cirrhosis. There is mild perihepatic ascites. The hepatic parenchyma demonstrates a heterogeneous, infiltrated appearance, consistent with diffuse neoplastic disease, primary versus metastatic. Spoke with Dr. Lopez on May 28, 2019 goals of care discussed with his very debilitated 83-year-old gentleman. Results of thoracentesis preliminary biopsy diagnosis and CT scan done post procedure as above. I have not heard back from patient's grandson will reach out to him once again as he wanted to contact patients brothers higher deciding upon hospice care. Consultation Date/Type/Reason Admit Date/Time May 25, 2019 at 02:29 Date/Time of Note DATE: 05/29/19 TIME: 08:22 Past Medical History Medical History: cancer, high cholesterol, hypertension Home Meds Reported Medications Lisinopril* (Lisinopril*) 40 Mg Tablet, 40 MG PO DAILY, #30 TAB 05/25/19 Pioglitazone Hcl* (Pioglitazone Hcl*) 45 Mg Tablet, 45 MG PO DAILY, TAB 05/25/19 Cholecalciferol (Vitamin D3) 1,000 Unit Capsule, 1000 UNIT PO DAILY, CAP 05/25/19 Rosuvastatin Calcium* (Crestor*) 10 Mg Tablet, 10 MG PO QHS, #30 TAB 05/25/19 Tramadol Hcl* (Ultram*) 50 Mg Tablet, 50 MG PO Q6H PRN for PAIN, TAB 05/25/19 Pioglitazone Hcl* (Pioglitazone Hcl*) 45 Mg Tablet, 45 MG PO DAILY, TAB 05/25/19 Glipizide* (Glipizide*) 10 Mg Tablet, 10 MG PO DAILY, TAB 05/25/19 Benazepril Hcl* (Benazepril Hcl*) 20 Mg Tablet, 20 MG PO DAILY, #30 TAB 05/25/19 Metformin* (Glucophage*) 1,000 Mg Tablet, 1000 MG PO BID, #60 TAB 05/25/19 Medications Current Medications IV Flush (NS 3 ml) 3 ml PER PROTOCOL IV ; Start 05/25/19 at 02:30 Ondansetron HCl (Zofran Inj) 4 mg Q6H PRN IV NAUSEA/VOMITING; Start 05/25/19 at 02:30 Acetaminophen (Tylenol Tab) 650 mg Q6H PRN PO .PAIN 1-3 OR TEMP; Start 05/25/19 at 02:30 Bisacodyl (Dulcolax) 5 mg DAILY PRN PO .CONSTIPATION; Start 05/25/19 at 02:30 Docusate Sodium (Colace) 100 mg Q12 PO ; Start 05/26/19 at 21:00 Diagnostic Test (Pha) (Accu-Chek) 1 ea 02 XX ; Start 05/26/19 at 02:00 Insulin Aspart (Novolog Insulin Pen) NOVOLOG *MILD* ALGORI... Q4 SC Last administered on 05/29/19at 01:11; Admin Dose 1 UNIT; Start 05/26/19 at 01:00 Miscellaneous Information 1 ea NOTE XX ; Start 05/26/19 at 00:30 Glucose (Glutose) 15 gm Q15M PRN PO DECREASED GLUCOSE; Start 05/26/19 at 00:30 Glucose (Glutose) 22.5 gm Q15M PRN PO DECREASED GLUCOSE; Start 05/26/19 at 00:30 Dextrose (D50w Syringe) 25 ml Q15M PRN IV DECREASED GLUCOSE Last administered on 05/26/19at 04:58; Admin Dose 25 ML; Start 05/26/19 at 00:30 Dextrose (D50w Syringe) 50 ml Q15M PRN IV DECREASED GLUCOSE Last administered on 05/26/19at 01:03; Admin Dose 50 ML; Start 05/26/19 at 00:30 Glucagon (Glucagen) 1 mg Q15M PRN IM DECREASED GLUCOSE; Start 05/26/19 at 00:30 Glucose (Glutose) 15 gm Q15M PRN BUCCAL DECREASED GLUCOSE; Start 05/26/19 at 00:30 Heparin Sodium (Porcine) (Heparin (5000 Units/1ml)) 5,000 unit BID SC Last administered on 05/28/19at 20:42; Admin Dose 5,000 UNIT; Start 05/27/19 at 09:00 Piperacillin Sod/ Tazobactam Sod 100 ml @ 200 mls/hr Q8 IVPB Last administered on 05/29/19at 05:09; Admin Dose 200 MLS/HR; Start 05/27/19 at 22:00 Diclofenac Sodium (Voltaren 1% Gel) 4 gm QID TP Last administered on 05/28/19at 20:37; Admin Dose 4 GM; Start 05/28/19 at 14:30 Lidocaine (Lidoderm) 1 patch DAILY TD ; Start 05/28/19 at 14:30 Tramadol HCl (Ultram) 50 mg Q6H PRN PO MODERATE PAIN LEVEL 4-6; Start 05/29/19 at 07:00 Allergies: Coded Allergies: No Known Allergy (Unverified , 05/25/19) Past Surgical History Past Surgical Hx: no surgical history, other (Unknown) Social History Alcohol Use: none Smoking Status: Never smoker Drug Use: none Exam/Review of Systems Exam Vitals Vital Signs Date Temp Pulse Resp B/P (MAP) Pulse Ox O2 O2 Flow FiO2 Time Delivery Rate 05/29/19 97.8 78 18 148/68 96 Room Air 01:54 (94) Intake and Output 05/28/19 05/28/19 05/29/19 1515:00 23:00 07:00 IntakeIntake Total 100 ml 1150 ml 900 ml OutputOutput Total 300 ml 400 ml BalanceBalance 100 ml 850 ml 500 ml Results Result Diagram: 05/28/19 1627 05/28/19 1627 Results 24hrs Laboratory Tests Test 05/28/19 08:48 05/28/19 16:27 05/28/19 17:37 05/28/19 20:39 Bedside Glucose 163 167 145 White Blood Count 16.5 H Red Blood Count 4.33 L Hemoglobin 12.1 L Hematocrit 38.8 L Mean Corpuscular 89.6 Volume Mean Corpuscular 27.9 L Hemoglobin Mean Corpuscular 31.2 L Hemoglobin Concent Red Cell 20.6 H Distribution Width Platelet Count 126 L Mean Platelet Volume 11.9 H Immature 0.700 H Granulocytes % Neutrophils % 89.1 H Lymphocytes % 5.9 L Monocytes % 4.0 Eosinophils % 0.1 Basophils % 0.2 Nucleated Red Blood 0.0 Cells % Immature 0.120 H Granulocytes # Neutrophils # 14.8 H Lymphocytes # 1.0 Monocytes # 0.7 Eosinophils # 0.0 Basophils # 0.0 Nucleated Red Blood 0.0 Cells # Sodium Level 138 Potassium Level 3.5 Chloride Level 107 Carbon Dioxide Level 18 L Anion Gap 13 Blood Urea Nitrogen 28 H Creatinine 1.57 H Est Glomerular Filtrat Rate mL/min Glucose Level 179 Calcium Level 8.0 L Total Bilirubin 0.7 Direct Bilirubin 0.00 Indirect Bilirubin 0.7 Aspartate Amino 139 H Transf (AST/SGOT) Alanine 50 Aminotransferase (AL T/SGPT) Alkaline Phosphatase 1442 H Total Protein 6.3 Albumin 2.6 L Globulin 3.70 H Albumin/Globulin 0.70 Ratio Test 05/29/19 01:08 05/29/19 05:10 Bedside Glucose 164 132 Medications Medication Current Medications IV Flush (NS 3 ml) 3 ml PER PROTOCOL IV ; Start 05/25/19 at 02:30 Ondansetron HCl (Zofran Inj) 4 mg Q6H PRN IV NAUSEA/VOMITING; Start 05/25/19 at 02:30 Acetaminophen (Tylenol Tab) 650 mg Q6H PRN PO .PAIN 1-3 OR TEMP; Start 05/25/19 at 02:30 Bisacodyl (Dulcolax) 5 mg DAILY PRN PO .CONSTIPATION; Start 05/25/19 at 02:30 Docusate Sodium (Colace) 100 mg Q12 PO ; Start 05/26/19 at 21:00 Diagnostic Test (Pha) (Accu-Chek) 1 ea 02 XX ; Start 05/26/19 at 02:00 Insulin Aspart (Novolog Insulin Pen) NOVOLOG *MILD* ALGORI... Q4 SC Last administered on 05/29/19at 01:11; Admin Dose 1 UNIT; Start 05/26/19 at 01:00 Miscellaneous Information 1 ea NOTE XX ; Start 05/26/19 at 00:30 Glucose (Glutose) 15 gm Q15M PRN PO DECREASED GLUCOSE; Start 05/26/19 at 00:30 Glucose (Glutose) 22.5 gm Q15M PRN PO DECREASED GLUCOSE; Start 05/26/19 at 00:30 Dextrose (D50w Syringe) 25 ml Q15M PRN IV DECREASED GLUCOSE Last administered on 05/26/19at 04:58; Admin Dose 25 ML; Start 05/26/19 at 00:30 Dextrose (D50w Syringe) 50 ml Q15M PRN IV DECREASED GLUCOSE Last administered on 05/26/19at 01:03; Admin Dose 50 ML; Start 05/26/19 at 00:30 Glucagon (Glucagen) 1 mg Q15M PRN IM DECREASED GLUCOSE; Start 05/26/19 at 00:30 Glucose (Glutose) 15 gm Q15M PRN BUCCAL DECREASED GLUCOSE; Start 05/26/19 at 00:30 Heparin Sodium (Porcine) (Heparin (5000 Units/1ml)) 5,000 unit BID SC Last administered on 05/28/19at 20:42; Admin Dose 5,000 UNIT; Start 05/27/19 at 09:00 Piperacillin Sod/ Tazobactam Sod 100 ml @ 200 mls/hr Q8 IVPB Last administered on 05/29/19at 05:09; Admin Dose 200 MLS/HR; Start 05/27/19 at 22:00 Diclofenac Sodium (Voltaren 1% Gel) 4 gm QID TP Last administered on 05/28/19at 20:37; Admin Dose 4 GM; Start 05/28/19 at 14:30 Lidocaine (Lidoderm) 1 patch DAILY TD ; Start 05/28/19 at 14:30 Tramadol HCl (Ultram) 50 mg Q6H PRN PO MODERATE PAIN LEVEL 4-6; Start 05/29/19 at 07:00 BEVERLY LIEBERMAN May 29, 2019 08:22
[2019-05-29] MEDS: BALSAM PERU/CASTOR OIL 60 GM TUBE TOP SCH ×2 (08:56→21:38)
[2019-05-29] MEDS: DICLOFENAC SODIUM 1% GEL 100 GM TUBE TP SCH ×4 (08:58→21:38)
[2019-05-29] MEDS: DOCUSATE SODIUM 100 MG CAP PO SCH ×2 (09:00→21:00)
[2019-05-29] MEDS: HEPARIN 5,000 UNIT/1 ML VIAL SC SCH ×2 (09:00→21:39)
[2019-05-29] MEDS: LIDOCAINE 5% PATCH TD SCH (09:00)
--- NOTE | 2019-05-29 11:17 | QN ---
Documentation Comment Chart reviewed. Pt remains debilitated and not able to participate in planning of his care. Dr. Orr is in contact with the son and decisions are being made about goals of care. The preliminary pathology from the liver biopsy is a poorly differentiated carcinoma with full report to follow. At this time I think that a lung primary is the most likely diagnosis. If the decision is for hospice, then getting genomic studies is not necessary. If treatment is desired, then those studies should be done. However given the very poor performance status, hospice care seems very reasonable. We will f/u on the pathology at the beginning of the week. I will be away but Dr. Devries will be covering for me. ( ) MARIXA MANCINI MD May 29, 2019 11:17
--- NOTE | 2019-05-29 12:45 | PN ---
Date/Time of Note Date/Time of Note DATE: 05/29/19 TIME: 12:40 Assessment/Plan VTE Prophylaxis Risk score (from Ns)>0 risk: 3 SCD applied (from Ns): Yes Pharmacological prophylaxis: NA/contraindicated Pharm contraindication: other Lines/Catheters IV [facility]ter Type [facility]from [facility] Saline Lock Urinary Cath still in place: No Assessment/Plan Hospital Course 83-year-old male with a past medical history of hypertension, diabetes mellitus, hyperlipidemia and was a [employer] who presents to the presented to the emergency department with complaints of weakness and generalized abdominal pain for the last few weeks currently managed as follows: 1. Carcinoma Patient with large left upper lobe hilar mass with satellite lesions in the left upper lobe as well as extensive mediastinal lymphadenopathy concerning for primary lung cancer Patient also with liver mass with liver biopsy showing poorly differentiated carcinoma, lung primary is most likely diagnosis Oncology and palliative care following, patient with poor functional status and hospice is recommended 2. Large left pleural effusion of the left lower lobe secondary to above Thoracentesis was attempted 2 days ago unsuccessfully 3. Moderately sized necrotic cranial lesion patient reports this was said to be benign at [facility], will request records, however oncology team here states lesions looks very malignant planned for excision 06/12/19 at the [facility] 4. Hypertension: controlled 5. Diabetes: good control 6. Acute renal insufficiency: creatinine levels trending up again 7. Sepsis with bandemia vs SIRS secondary to malignancy High probability of underlying obstructive pna, continue empiric Zosyn 8. Cachexia 9. Chronic dementia with sundowning patient was treated with PRN ativan which made him obtunded for 2 days avoid all mood altering drugs as much as possible currently refusing labs and nursing interventions 10. 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, poor prognosis Result Diagram: 05/28/19 1627 05/28/19 1627 Results 24hrs Laboratory Tests Test 05/28/19 16:27 05/28/19 17:37 05/28/19 20:39 05/29/19 01:08 White Blood Count 16.5 H Red Blood Count 4.33 L Hemoglobin 12.1 L Hematocrit 38.8 L Mean Corpuscular 89.6 Volume Mean Corpuscular 27.9 L Hemoglobin Mean Corpuscular 31.2 L Hemoglobin Concent Red Cell 20.6 H Distribution Width Platelet Count 126 L Mean Platelet Volume 11.9 H Immature 0.700 H Granulocytes % Neutrophils % 89.1 H Lymphocytes % 5.9 L Monocytes % 4.0 Eosinophils % 0.1 Basophils % 0.2 Nucleated Red Blood 0.0 Cells % Immature 0.120 H Granulocytes # Neutrophils # 14.8 H Lymphocytes # 1.0 Monocytes # 0.7 Eosinophils # 0.0 Basophils # 0.0 Nucleated Red Blood 0.0 Cells # Sodium Level 138 Potassium Level 3.5 Chloride Level 107 Carbon Dioxide Level 18 L Anion Gap 13 Blood Urea Nitrogen 28 H Creatinine 1.57 H Est Glomerular Filtrat Rate mL/min Glucose Level 179 Calcium Level 8.0 L Total Bilirubin 0.7 Direct Bilirubin 0.00 Indirect Bilirubin 0.7 Aspartate Amino 139 H Transf (AST/SGOT) Alanine 50 Aminotransferase (AL T/SGPT) Alkaline Phosphatase 1442 H Total Protein 6.3 Albumin 2.6 L Globulin 3.70 H Albumin/Globulin 0.70 Ratio Bedside Glucose 167 145 164 Test 05/29/19 05:10 05/29/19 08:55 Bedside Glucose 132 124 Subjective 24 Hr Interval Summary Constitutional: disoriented Exam/Review of Systems Exam Vitals Vital Signs Date Temp Pulse Resp B/P (MAP) Pulse Ox O2 O2 Flow FiO2 Time Delivery Rate 05/29/19 97.8 87 19 140/66 98 Nasal 08:00 (90) Cannula Intake and Output 05/28/19 05/28/19 05/29/19 1515:00 23:00 07:00 IntakeIntake Total 100 ml 1150 ml 900 ml OutputOutput Total 300 ml 400 ml BalanceBalance 100 ml 850 ml 500 ml Constitutional: alert Respiratory: clear to auscultation Cardiovascular: regular rate and rhythm Gastrointestinal: soft; No distended Musculoskeletal: nl extremities to inspection Results Results 24hrs Laboratory Tests Test 05/28/19 16:27 05/28/19 17:37 05/28/19 20:39 05/29/19 01:08 White Blood Count 16.5 H Red Blood Count 4.33 L Hemoglobin 12.1 L Hematocrit 38.8 L Mean Corpuscular 89.6 Volume Mean Corpuscular 27.9 L Hemoglobin Mean Corpuscular 31.2 L Hemoglobin Concent Red Cell 20.6 H Distribution Width Platelet Count 126 L Mean Platelet Volume 11.9 H Immature 0.700 H Granulocytes % Neutrophils % 89.1 H Lymphocytes % 5.9 L Monocytes % 4.0 Eosinophils % 0.1 Basophils % 0.2 Nucleated Red Blood 0.0 Cells % Immature 0.120 H Granulocytes # Neutrophils # 14.8 H Lymphocytes # 1.0 Monocytes # 0.7 Eosinophils # 0.0 Basophils # 0.0 Nucleated Red Blood 0.0 Cells # Sodium Level 138 Potassium Level 3.5 Chloride Level 107 Carbon Dioxide Level 18 L Anion Gap 13 Blood Urea Nitrogen 28 H Creatinine 1.57 H Est Glomerular Filtrat Rate mL/min Glucose Level 179 Calcium Level 8.0 L Total Bilirubin 0.7 Direct Bilirubin 0.00 Indirect Bilirubin 0.7 Aspartate Amino 139 H Transf (AST/SGOT) Alanine 50 Aminotransferase (AL T/SGPT) Alkaline Phosphatase 1442 H Total Protein 6.3 Albumin 2.6 L Globulin 3.70 H Albumin/Globulin 0.70 Ratio Bedside Glucose 167 145 164 Test 05/29/19 05:10 05/29/19 08:55 Bedside Glucose 132 124 Medications Medication Current Medications IV Flush (NS 3 ml) 3 ml PER PROTOCOL IV ; Start 05/25/19 at 02:30 Ondansetron HCl (Zofran Inj) 4 mg Q6H PRN IV NAUSEA/VOMITING; Start 05/25/19 at 02:30 Acetaminophen (Tylenol Tab) 650 mg Q6H PRN PO .PAIN 1-3 OR TEMP; Start 05/25/19 at 02:30 Bisacodyl (Dulcolax) 5 mg DAILY PRN PO .CONSTIPATION; Start 05/25/19 at 02:30 Docusate Sodium (Colace) 100 mg Q12 PO ; Start 05/26/19 at 21:00 Diagnostic Test (Pha) (Accu-Chek) 1 ea 02 XX ; Start 05/26/19 at 02:00 Insulin Aspart (Novolog Insulin Pen) NOVOLOG *MILD* ALGORI... Q4 SC Last administered on 05/29/19at 01:11; Admin Dose 1 UNIT; Start 05/26/19 at 01:00 Miscellaneous Information 1 ea NOTE XX ; Start 05/26/19 at 00:30 Glucose (Glutose) 15 gm Q15M PRN PO DECREASED GLUCOSE; Start 05/26/19 at 00:30 Glucose (Glutose) 22.5 gm Q15M PRN PO DECREASED GLUCOSE; Start 05/26/19 at 00:30 Dextrose (D50w Syringe) 25 ml Q15M PRN IV DECREASED GLUCOSE Last administered on 05/26/19at 04:58; Admin Dose 25 ML; Start 05/26/19 at 00:30 Dextrose (D50w Syringe) 50 ml Q15M PRN IV DECREASED GLUCOSE Last administered on 05/26/19at 01:03; Admin Dose 50 ML; Start 05/26/19 at 00:30 Glucagon (Glucagen) 1 mg Q15M PRN IM DECREASED GLUCOSE; Start 05/26/19 at 00:30 Glucose (Glutose) 15 gm Q15M PRN BUCCAL DECREASED GLUCOSE; Start 05/26/19 at 00:30 Heparin Sodium (Porcine) (Heparin (5000 Units/1ml)) 5,000 unit BID SC Last administered on 05/28/19at 20:42; Admin Dose 5,000 UNIT; Start 05/27/19 at 09:00 Piperacillin Sod/ Tazobactam Sod 100 ml @ 200 mls/hr Q8 IVPB Last administered on 05/29/19at 05:09; Admin Dose 200 MLS/HR; Start 05/27/19 at 22:00 Diclofenac Sodium (Voltaren 1% Gel) 4 gm QID TP Last administered on 05/29/19at 08:58; Admin Dose 4 GM; Start 05/28/19 at 14:30 Lidocaine (Lidoderm) 1 patch DAILY TD ; Start 05/28/19 at 14:30 Tramadol HCl (Ultram) 50 mg Q6H PRN PO MODERATE PAIN LEVEL 4-6; Start 05/29/19 at 07:00 CHAPIN CAZARES May 29, 2019 12:45
[2019-05-29 14:00] VITALS: BP 148/76; PULSE 90; RESP 19
--- NOTE | 2019-05-29 16:51 | CONS ---
Assessment/Plan Assessment/Plan Assessment/Plan (Daily) IMP: 1. 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 2. Left hydroPTX s/p thora attempt 3. Severe deconditioning and cachexia RECS: 1. Await IHC stains on liver bx 2. Agree wth DNR status 3. Conservative management of PTX with nitrogen washout with high FiO2 as needed. Consultation Date/Type/Reason Admit Date/Time May 25, 2019 at 02:29 Date of Consultation: May 29, 2019 Type of Consult Pulm Reason for Consultation Lung mass/effusion/PTX Date/Time of Note DATE: 05/29/19 TIME: 16:44 Hx of Present Illness Briefly, this is an 83-year-old man with a past medical history of hypertension, diabetes mellitus, hyperlipidemia, who presents with a large left perihilar mass and evidence of extensive metastatic disease concerning for primary metastatic bronchogenic cancer. He underwent CT-guided biopsy of a liver lesion confirming poorly differentiated carcinoma however IHC stains are pending. He also had a left pleural effusion and underwent an attempt at left thoracentesis likely resulting in a left hydroPTX. Constitutional: poor po Eyes: no complaints ENT: no complaints Respiratory: cough Cardiovascular: no complaints Gastrointestinal: decreased appetite Genitourinary: no complaints Musculoskeletal: no complaints Skin: no complaints Neurologic: no complaints Endocrine: no complaints Lymphatic: adenopathy Psychological: no complaints Immunologic: no complaints Past Medical History Medical History: cancer, high cholesterol, hypertension Home Meds Reported Medications Lisinopril* (Lisinopril*) 40 Mg Tablet, 40 MG PO DAILY, #30 TAB 05/25/19 Pioglitazone Hcl* (Pioglitazone Hcl*) 45 Mg Tablet, 45 MG PO DAILY, TAB 05/25/19 Cholecalciferol (Vitamin D3) 1,000 Unit Capsule, 1000 UNIT PO DAILY, CAP 05/25/19 Rosuvastatin Calcium* (Crestor*) 10 Mg Tablet, 10 MG PO QHS, #30 TAB 05/25/19 Tramadol Hcl* (Ultram*) 50 Mg Tablet, 50 MG PO Q6H PRN for PAIN, TAB 05/25/19 Pioglitazone Hcl* (Pioglitazone Hcl*) 45 Mg Tablet, 45 MG PO DAILY, TAB 05/25/19 Glipizide* (Glipizide*) 10 Mg Tablet, 10 MG PO DAILY, TAB 7/23/19 Benazepril Hcl* (Benazepril Hcl*) 20 Mg Tablet, 20 MG PO DAILY, #30 TAB 05/25/19 Metformin* (Glucophage*) 1,000 Mg Tablet, 1000 MG PO BID, #60 TAB 05/25/19 Medications Current Medications IV Flush (NS 3 ml) 3 ml PER PROTOCOL IV ; Start 05/25/19 at 02:30 Ondansetron HCl (Zofran Inj) 4 mg Q6H PRN IV NAUSEA/VOMITING; Start 05/25/19 at 02:30 Acetaminophen (Tylenol Tab) 650 mg Q6H PRN PO .PAIN 1-3 OR TEMP; Start 05/25/19 at 02:30 Bisacodyl (Dulcolax) 5 mg DAILY PRN PO .CONSTIPATION; Start 05/25/19 at 02:30 Docusate Sodium (Colace) 100 mg Q12 PO ; Start 05/26/19 at 21:00 Diagnostic Test (Pha) (Accu-Chek) 1 ea 02 XX ; Start 05/26/19 at 02:00 Insulin Aspart (Novolog Insulin Pen) NOVOLOG *MILD* ALGORI... Q4 SC Last administered on 05/29/19at 01:11; Admin Dose 1 UNIT; Start 05/26/19 at 01:00 Miscellaneous Information 1 ea NOTE XX ; Start 05/26/19 at 00:30 Glucose (Glutose) 15 gm Q15M PRN PO DECREASED GLUCOSE; Start 05/26/19 at 00:30 Glucose (Glutose) 22.5 gm Q15M PRN PO DECREASED GLUCOSE; Start 05/26/19 at 00:30 Dextrose (D50w Syringe) 25 ml Q15M PRN IV DECREASED GLUCOSE Last administered on 05/26/19at 04:58; Admin Dose 25 ML; Start 05/26/19 at 00:30 Dextrose (D50w Syringe) 50 ml Q15M PRN IV DECREASED GLUCOSE Last administered on 05/26/19at 01:03; Admin Dose 50 ML; Start 05/26/19 at 00:30 Glucagon (Glucagen) 1 mg Q15M PRN IM DECREASED GLUCOSE; Start 05/26/19 at 00:30 Glucose (Glutose) 15 gm Q15M PRN BUCCAL DECREASED GLUCOSE; Start 05/26/19 at 00:30 Heparin Sodium (Porcine) (Heparin (5000 Units/1ml)) 5,000 unit BID SC Last administered on 05/28/19at 20:42; Admin Dose 5,000 UNIT; Start 05/27/19 at 09:00 Piperacillin Sod/ Tazobactam Sod 100 ml @ 200 mls/hr Q8 IVPB Last administered on 05/29/19at 13:29; Admin Dose 200 MLS/HR; Start 05/27/19 at 22:00 Diclofenac Sodium (Voltaren 1% Gel) 4 gm QID TP Last administered on 05/29/19at 13:16; Admin Dose 4 GM; Start 05/28/19 at 14:30 Lidocaine (Lidoderm) 1 patch DAILY TD ; Start 05/28/19 at 14:30 Tramadol HCl (Ultram) 50 mg Q6H PRN PO MODERATE PAIN LEVEL 4-6; Start 05/29/19 at 07:00 Allergies: Coded Allergies: No Known Allergy (Unverified , 05/25/19) Past Surgical History Past Surgical Hx: no surgical history, other (Unknown) Social History Alcohol Use: none Smoking Status: Never smoker Drug Use: none Exam/Review of Systems Exam Vitals Vital Signs Date Temp Pulse Resp B/P (MAP) Pulse Ox O2 O2 Flow FiO2 Time Delivery Rate 05/29/19 97.5 90 19 148/76 98 Nasal 2.0 14:00 (100) Cannula Intake and Output 05/28/19 05/28/19 05/29/19 1515:00 23:00 07:00 IntakeIntake Total 100 ml 1150 ml 900 ml OutputOutput Total 300 ml 400 ml BalanceBalance 100 ml 850 ml 500 ml Constitutional: alert, frail Psych: no complaints Head: normocephalic, atraumatic Eyes: nl conjunctiva, EOMI, nl lids, nl sclera ENMT: nl external ears & nose, nl lips & teeth, nl nasal mucosa & septum Neck: supple, non-tender Respiratory: diminished breath sounds Cardiovascular: regular rate and rhythm Gastrointestinal: soft, nl liver, spleen, non-tender Extremities: normal pulses Neurological: DEBEADER II-XII intact Results Result Diagram: 05/28/19 1627 05/28/19 1627 Results 24hrs Laboratory Tests Test 05/28/19 17:37 05/28/19 20:39 05/29/19 01:08 05/29/19 05:10 Bedside Glucose 167 145 164 132 Test 05/29/19 08:55 05/29/19 13:12 Bedside Glucose 124 117 Medications Medication Current Medications IV Flush (NS 3 ml) 3 ml PER PROTOCOL IV ; Start 05/25/19 at 02:30 Ondansetron HCl (Zofran Inj) 4 mg Q6H PRN IV NAUSEA/VOMITING; Start 05/25/19 at 02:30 Acetaminophen (Tylenol Tab) 650 mg Q6H PRN PO .PAIN 1-3 OR TEMP; Start 05/25/19 at 02:30 Bisacodyl (Dulcolax) 5 mg DAILY PRN PO .CONSTIPATION; Start 05/25/19 at 02:30 Docusate Sodium (Colace) 100 mg Q12 PO ; Start 05/26/19 at 21:00 Diagnostic Test (Pha) (Accu-Chek) 1 ea 02 XX ; Start 05/26/19 at 02:00 Insulin Aspart (Novolog Insulin Pen) NOVOLOG *MILD* ALGORI... Q4 SC Last administered on 05/29/19at 01:11; Admin Dose 1 UNIT; Start 05/26/19 at 01:00 Miscellaneous Information 1 ea NOTE XX ; Start 05/26/19 at 00:30 Glucose (Glutose) 15 gm Q15M PRN PO DECREASED GLUCOSE; Start 05/26/19 at 00:30 Glucose (Glutose) 22.5 gm Q15M PRN PO DECREASED GLUCOSE; Start 05/26/19 at 00:30 Dextrose (D50w Syringe) 25 ml Q15M PRN IV DECREASED GLUCOSE Last administered on 05/26/19at 04:58; Admin Dose 25 ML; Start 05/26/19 at 00:30 Dextrose (D50w Syringe) 50 ml Q15M PRN IV DECREASED GLUCOSE Last administered on 05/26/19at 01:03; Admin Dose 50 ML; Start 05/26/19 at 00:30 Glucagon (Glucagen) 1 mg Q15M PRN IM DECREASED GLUCOSE; Start 05/26/19 at 00:30 Glucose (Glutose) 15 gm Q15M PRN BUCCAL DECREASED GLUCOSE; Start 05/26/19 at 00:30 Heparin Sodium (Porcine) (Heparin (5000 Units/1ml)) 5,000 unit BID SC Last administered on 05/28/19at 20:42; Admin Dose 5,000 UNIT; Start 05/27/19 at 09:00 Piperacillin Sod/ Tazobactam Sod 100 ml @ 200 mls/hr Q8 IVPB Last administered on 05/29/19at 13:29; Admin Dose 200 MLS/HR; Start 05/27/19 at 22:00 Diclofenac Sodium (Voltaren 1% Gel) 4 gm QID TP Last administered on 05/29/19at 13:16; Admin Dose 4 GM; Start 05/28/19 at 14:30 Lidocaine (Lidoderm) 1 patch DAILY TD ; Start 05/28/19 at 14:30 Tramadol HCl (Ultram) 50 mg Q6H PRN PO MODERATE PAIN LEVEL 4-6; Start 05/29/19 at 07:00 LUNA AKERS MD May 29, 2019 16:51
--- NOTE | 2019-05-29 20:06 | PN ---
Date/Time of Note Date/Time of Note DATE: 05/29/19 TIME: 20:06 Assessment/Plan Lines/Catheters IV Catheter Type (from Nrsg): Saline Lock [place] in Place (from Nrsg): No Assessment/Plan Assessment/Plan AP Stage IV lung cancer with a lung mass Would not recommend any aggressive measures with respect to treatment Continue conservative therapy possible chemotherapy for oncology Treatment of possible pleural effusion or pneumothorax Subjective 24 Hr Interval Summary Constitutional: improved Pain Control: mild Exam/Review of Systems Vital Signs Vitals Vital Signs Date Temp Pulse Resp B/P (MAP) Pulse Ox O2 O2 Flow FiO2 Time Delivery Rate 05/29/19 97.5 90 19 148/76 98 Nasal 2.0 14:00 (100) Cannula Intake and Output 05/28/19 05/28/19 05/29/19 1515:00 23:00 07:00 IntakeIntake Total 100 ml 1150 ml 900 ml OutputOutput Total 300 ml 400 ml BalanceBalance 100 ml 850 ml 500 ml Exam ENMT: nl external ears & nose, nl lips & teeth, nl nasal mucosa & septum, mucosa pink and moist Neck: supple, non-tender Respiratory: clear to auscultation, normal air movement Cardiovascular: regular rate and rhythm, nl pulses Gastrointestinal: soft, nl liver, spleen, non-tender Results Result Diagram: 05/28/19 1627 05/28/19 162 VIKAS VILLATORO MD May 29, 2019 20:06
[2019-05-29 20:25] VITALS: BP 132/72; PULSE 96; RESP 19
[2019-05-30] MEDS: INSULIN ASPART [NOVOLOG] 3 ML PEN SC SCH ×6 (00:51→20:02)
[2019-05-30 02:04] VITALS: BP 128/74; PULSE 89; RESP 20
[2019-05-30] MEDS: PIPER-TAZO 3.375 GM IV (PMX) 100 ML IVPB SCH ×3 (05:34→20:08)
[2019-05-30 07:42] VITALS: BP 123/72; PULSE 91; RESP 19
[2019-05-30] MEDS: HEPARIN 5,000 UNIT/1 ML VIAL SC SCH ×2 (09:00→20:09)
[2019-05-30] MEDS: DOCUSATE SODIUM 100 MG CAP PO SCH ×2 (09:00→20:02)
[2019-05-30] MEDS: LIDOCAINE 5% PATCH TD SCH (09:00)
[2019-05-30] MEDS: DICLOFENAC SODIUM 1% GEL 100 GM TUBE TP SCH ×4 (09:13→20:07)
[2019-05-30] MEDS: BALSAM PERU/CASTOR OIL 60 GM TUBE TOP SCH ×2 (09:14→20:07)
[2019-05-30 14:00] VITALS: BP 137/67; PULSE 93; RESP 19
--- NOTE | 2019-05-30 14:25 | CONS ---
Consult Date/Type/Reason Admit Date/Time May 25, 2019 at 02:29 Initial Consult Date 05/29/19 Type of Consultation: Pulm Requesting Provider: EMILIANO SADLER Date/Time of Note DATE: 05/30/19 TIME: 14:23 Subjective No events overnight. CXR shows no change in left hydroPTX Objective Vitals Vital Signs Date Temp Pulse Resp B/P (MAP) Pulse Ox O2 O2 Flow FiO2 Time Delivery Rate 05/30/19 97.7 93 19 137/67 96 Room Air 14:00 (90) 05/29/19 2.0 22:00 Intake and Output 05/29/19 05/29/19 05/30/19 1515:00 23:00 07:00 IntakeIntake Total 400 ml 100 ml 100 ml OutputOutput Total 400 ml 400 ml BalanceBalance 400 ml -300 ml -300 ml Exam HEENT: Neck supple; no JVD; no LAD CVS: RRR, S1 and S2 CHEST: Decreased BS left lung ABD: Soft, NT, + BS EXT: No c/c/e Results/Medications Result Diagram: 05/30/1923 05/30/19 0823 Results 24 hrs Laboratory Tests Test 05/29/19 16:52 05/29/19 21:35 05/30/19 00:50 05/30/19 05:33 Bedside Glucose 106 134 107 82 Test 05/30/19 08:23 05/30/19 09:12 05/30/19 12:56 White Blood Count 21.4 #H Red Blood Count 4.44 L Hemoglobin 12.5 L Hematocrit 39.8 L Mean Corpuscular 89.6 Volume Mean Corpuscular 28.2 L Hemoglobin Mean Corpuscular 31.4 L Hemoglobin Concent Red Cell 21.6 H Distribution Width Platelet Count 132 L Mean Platelet Volume 11.3 H Immature 1.100 H Granulocytes % Neutrophils % 91.5 H Lymphocytes % 3.9 L Monocytes % 3.4 Eosinophils % 0.0 Basophils % 0.1 Nucleated Red Blood 0.0 Cells % Immature 0.230 H Granulocytes # Neutrophils # 19.5 H Lymphocytes # 0.8 Monocytes # 0.7 Eosinophils # 0.0 Basophils # 0.0 Nucleated Red Blood 0.0 Cells # Sodium Level 141 Potassium Level 3.7 Chloride Level 108 Carbon Dioxide Level 20 L Anion Gap 13 Blood Urea Nitrogen 34 H Creatinine 1.83 H Est Glomerular Filtrat Rate mL/min Glucose Level 111 # Calcium Level 8.4 Bedside Glucose 104 118 Home Meds Reported Medications Lisinopril* (Lisinopril*) 40 Mg Tablet, 40 MG PO DAILY, #30 TAB 05/25/19 Pioglitazone Hcl* (Pioglitazone Hcl*) 45 Mg Tablet, 45 MG PO DAILY, TAB 05/25/19 Cholecalciferol (Vitamin D3) 1,000 Unit Capsule, 1000 UNIT PO DAILY, CAP 05/25/19 Rosuvastatin Calcium* (Crestor*) 10 Mg Tablet, 10 MG PO QHS, #30 TAB 05/25/19 Tramadol Hcl* (Ultram*) 50 Mg Tablet, 50 MG PO Q6H PRN for PAIN, TAB 05/25/19 Pioglitazone Hcl* (Pioglitazone Hcl*) 45 Mg Tablet, 45 MG PO DAILY, TAB 05/25/19 Glipizide* (Glipizide*) 10 Mg Tablet, 10 MG PO DAILY, TAB 05/25/19 Benazepril Hcl* (Benazepril Hcl*) 20 Mg Tablet, 20 MG PO DAILY, #30 TAB 05/25/19 Metformin* (Glucophage*) 1,000 Mg Tablet, 1000 MG PO BID, #60 TAB 05/25/19 Medications Current Medications IV Flush (NS 3 ml) 3 ml PER PROTOCOL IV ; Start 05/25/19 at 02:30 Ondansetron HCl (Zofran Inj) 4 mg Q6H PRN IV NAUSEA/VOMITING; Start 05/25/19 at 02:30 Acetaminophen (Tylenol Tab) 650 mg Q6H PRN PO .PAIN 1-3 OR TEMP; Start 05/25/19 at 02:30 Bisacodyl (Dulcolax) 5 mg DAILY PRN PO .CONSTIPATION; Start 05/25/19 at 02:30 Docusate Sodium (Colace) 100 mg Q12 PO ; Start 05/26/19 at 21:00 Diagnostic Test (Pha) (Accu-Chek) 1 ea 02 XX ; Start 05/26/19 at 02:00 Insulin Aspart (Novolog Insulin Pen) NOVOLOG *MILD* ALGORI... Q4 SC Last administered on 05/29/19at 01:11; Admin Dose 1 UNIT; Start 05/26/19 at 01:00 Miscellaneous Information 1 ea NOTE XX ; Start 05/26/19 at 00:30 Glucose (Glutose) 15 gm Q15M PRN PO DECREASED GLUCOSE; Start 05/26/19 at 00:30 Glucose (Glutose) 22.5 gm Q15M PRN PO DECREASED GLUCOSE; Start 05/26/19 at 00:30 Dextrose (D50w Syringe) 25 ml Q15M PRN IV DECREASED GLUCOSE Last administered on 05/26/19at 04:58; Admin Dose 25 ML; Start 05/26/19 at 00:30 Dextrose (D50w Syringe) 50 ml Q15M PRN IV DECREASED GLUCOSE Last administered on 05/26/19at 01:03; Admin Dose 50 ML; Start 05/26/19 at 00:30 Glucagon (Glucagen) 1 mg Q15M PRN IM DECREASED GLUCOSE; Start 05/26/19 at 00:30 Glucose (Glutose) 15 gm Q15M PRN BUCCAL DECREASED GLUCOSE; Start 05/26/19 at 00:30 Heparin Sodium (Porcine) (Heparin (5000 Units/1ml)) 5,000 unit BID SC Last administered on 05/29/19at 21:39; Admin Dose 5,000 UNIT; Start 05/27/19 at 09:00 Piperacillin Sod/ Tazobactam Sod 100 ml @ 200 mls/hr Q8 IVPB Last administered on 05/30/19at 14:21; Admin Dose 200 MLS/HR; Start 05/27/19 at 22:00 Diclofenac Sodium (Voltaren 1% Gel) 4 gm QID TP Last administered on 05/30/19at 12:59; Admin Dose 4 GM; Start 05/28/19 at 14:30 Lidocaine (Lidoderm) 1 patch DAILY TD ; Start 05/28/19 at 14:30 Tramadol HCl (Ultram) 50 mg Q6H PRN PO MODERATE PAIN LEVEL 4-6; Start 05/29/19 at 07:00 Assessment/Plan Assessment/Plan (Daily) IMP: 1. 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 2. Left hydroPTX s/p thora attempt 3. Severe deconditioning and cachexia RECS: 1. Await IHC stains on liver bx 2. Agree wth DNR status 3. Conservative management of PTX with nitrogen washout with high FiO2 as needed. LUNA AKERS MD May 30, 2019 14:24
--- NOTE | 2019-05-30 14:36 | PN ---
Date/Time of Note Date/Time of Note DATE: 05/30/19 TIME: 14:35 Assessment/Plan VTE Prophylaxis Risk score (from Ns)>0 risk: 3 SCD applied (from [facility] [place] Yes Pharmacological prophylaxis: NA/contraindicated Pharm contraindication: other Lines/Catheters [facility]from [facility] Saline Lock Urinary Cath still in place: No Assessment/Plan Hospital Course 83-year-old male with a past medical history of hypertension, diabetes mellitus, hyperlipidemia and was a [place] [employer] who presents to the presented to the emergency department with complaints of weakness and generalized abdominal pain for the last few weeks currently managed as follows: 1. Carcinoma Patient with large left upper lobe hilar mass with satellite lesions in the left upper lobe as well as extensive mediastinal lymphadenopathy concerning for primary lung cancer Patient also with liver mass with liver biopsy showing poorly differentiated carcinoma, lung primary is most likely diagnosis Oncology and palliative care following, patient with poor functional status and hospice is recommended 2. Large left pleural effusion of the left lower lobe secondary to above Thoracentesis was attempted 2 days ago unsuccessfully 3. Moderately sized necrotic cranial lesion patient reports this was said to be benign at [facility], will request records, however oncology team here states lesions looks very malignant planned for excision 06/12/19 at the [facility] 4. Hypertension: controlled 5. Diabetes: good control 6. Acute renal insufficiency: creatinine levels trending up again 7. Sepsis with bandemia vs SIRS secondary to malignancy High probability of underlying obstructive pna, continue empiric Zosyn 8. Cachexia 9. Chronic dementia with sundowning patient was treated with PRN ativan which made him obtunded for 2 days avoid all mood altering drugs as much as possible currently refusing labs and nursing interventions 10. 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 eval, poor prognosis Result Diagram: 05/30/1982205/30/19822 Results 24hrs Laboratory Tests Test 05/29/19 16:52 05/29/19 21:35 05/30/19 00:50 05/30/19 05:33 Bedside Glucose 106 134 107 82 Test 05/30/19 08:23 05/30/19 09:12 05/30/19 12:56 White Blood Count 21.4 #H Red Blood Count 4.44 L Hemoglobin 12.5 L Hematocrit 39.8 L Mean Corpuscular 89.6 Volume Mean Corpuscular 28.2 L Hemoglobin Mean Corpuscular 31.4 L Hemoglobin Concent Red Cell 21.6 H Distribution Width Platelet Count 132 L Mean Platelet Volume 11.3 H Immature 1.100 H Granulocytes % Neutrophils % 91.5 H Lymphocytes % 3.9 L Monocytes % 3.4 Eosinophils % 0.0 Basophils % 0.1 Nucleated Red Blood 0.0 Cells % Immature 0.230 H Granulocytes # Neutrophils # 19.5 H Lymphocytes # 0.8 Monocytes # 0.7 Eosinophils # 0.0 Basophils # 0.0 Nucleated Red Blood 0.0 Cells # Sodium Level 141 Potassium Level 3.7 Chloride Level 108 Carbon Dioxide Level 20 L Anion Gap 13 Blood Urea Nitrogen 34 H Creatinine 1.83 H Est Glomerular Filtrat Rate mL/min Glucose Level 111 # Calcium Level 8.4 Bedside Glucose 104 118 Subjective 24 Hr Interval Summary Subjective hx not possible: pt non-verbal Exam/Review of Systems Exam Vitals Vital Signs Date Temp Pulse Resp B/P (MAP) Pulse Ox O2 O2 Flow FiO2 Time Delivery Rate 05/30/19 97.7 93 19 137/67 96 Room Air 14:00 (90) 05/29/19 2.0 22:00 Intake and Output 05/29/19 05/29/19 05/30/19 1515:00 23:00 07:00 IntakeIntake Total 400 ml 100 ml 100 ml OutputOutput Total 400 ml 400 ml BalanceBalance 400 ml -300 ml -300 ml Constitutional: non-verbal Respiratory: clear to auscultation Cardiovascular: regular rate and rhythm Gastrointestinal: soft; No distended Musculoskeletal: nl extremities to inspection Results Results 24hrs Laboratory Tests Test 05/29/19 16:52 05/29/19 21:35 05/30/19 00:50 05/30/19 05:33 Bedside Glucose 106 134 107 82 Test 05/30/19 08:23 05/30/19 09:12 05/30/19 12:56 White Blood Count 21.4 #H Red Blood Count 4.44 L Hemoglobin 12.5 L Hematocrit 39.8 L Mean Corpuscular 89.6 Volume Mean Corpuscular 28.2 L Hemoglobin Mean Corpuscular 31.4 L Hemoglobin Concent Red Cell 21.6 H Distribution Width Platelet Count 132 L Mean Platelet Volume 11.3 H Immature 1.100 H Granulocytes % Neutrophils % 91.5 H Lymphocytes % 3.9 L Monocytes % 3.4 Eosinophils % 0.0 Basophils % 0.1 Nucleated Red Blood 0.0 Cells % Immature 0.230 H Granulocytes # Neutrophils # 19.5 H Lymphocytes # 0.8 Monocytes # 0.7 Eosinophils # 0.0 Basophils # 0.0 Nucleated Red Blood 0.0 Cells # Sodium Level 141 Potassium Level 3.7 Chloride Level 108 Carbon Dioxide Level 20 L Anion Gap 13 Blood Urea Nitrogen 34 H Creatinine 1.83 H Est Glomerular Filtrat Rate mL/min Glucose Level 111 # Calcium Level 8.4 Bedside Glucose 104 118 Medications Medication Current Medications IV Flush (NS 3 ml) 3 ml PER PROTOCOL IV ; Start 05/25/19 at 02:30 Ondansetron HCl (Zofran Inj) 4 mg Q6H PRN IV NAUSEA/VOMITING; Start 05/25/19 at 02:30 Acetaminophen (Tylenol Tab) 650 mg Q6H PRN PO .PAIN 1-3 OR TEMP; Start 05/25/19 at 02:30 Bisacodyl (Dulcolax) 5 mg DAILY PRN PO .CONSTIPATION; Start 05/25/19 at 02:30 Docusate Sodium (Colace) 100 mg Q12 PO ; Start 05/26/19 at 21:00 Diagnostic Test (Pha) (Accu-Chek) 1 ea 02 XX ; Start 05/26/19 at 02:00 Insulin Aspart (Novolog Insulin Pen) NOVOLOG *MILD* ALGORI... Q4 SC Last administered on 05/29/19at 01:11; Admin Dose 1 UNIT; Start 05/26/19 at 01:00 Miscellaneous Information 1 ea NOTE XX ; Start 05/26/19 at 00:30 Glucose (Glutose) 15 gm Q15M PRN PO DECREASED GLUCOSE; Start 05/26/19 at 00:30 Glucose (Glutose) 22.5 gm Q15M PRN PO DECREASED GLUCOSE; Start 05/26/19 at 00:30 Dextrose (D50w Syringe) 25 ml Q15M PRN IV DECREASED GLUCOSE Last administered on 05/26/19at 04:58; Admin Dose 25 ML; Start 05/26/19 at 00:30 Dextrose (D50w Syringe) 50 ml Q15M PRN IV DECREASED GLUCOSE Last administered on 05/26/19at 01:03; Admin Dose 50 ML; Start 05/26/19 at 00:30 Glucagon (Glucagen) 1 mg Q15M PRN IM DECREASED GLUCOSE; Start 05/26/19 at 00:30 Glucose (Glutose) 15 gm Q15M PRN BUCCAL DECREASED GLUCOSE; Start 05/26/19 at 00:30 Heparin Sodium (Porcine) (Heparin (5000 Units/1ml)) 5,000 unit BID SC Last administered on 05/29/19at 21:39; Admin Dose 5,000 UNIT; Start 05/27/19 at 09:00 Piperacillin Sod/ Tazobactam Sod 100 ml @ 200 mls/hr Q8 IVPB Last administered on 05/30/19at 14:21; Admin Dose 200 MLS/HR; Start 05/27/19 at 22:00 Diclofenac Sodium (Voltaren 1% Gel) 4 gm QID TP Last administered on 05/30/19at 12:59; Admin Dose 4 GM; Start 05/28/19 at 14:30 Lidocaine (Lidoderm) 1 patch DAILY TD ; Start 05/28/19 at 14:30 Tramadol HCl (Ultram) 50 mg Q6H PRN PO MODERATE PAIN LEVEL 4-6; Start 05/29/19 at 07:00 CHAPIN CAZARES May 30, 2019 14:36
[2019-05-30 18:40] VITALS: BP 123/62; PULSE 97; RESP 20
[2019-05-30] MEDS ORDERED: KETOROLAC 15 MG INJ IV PRN (19:30)
[2019-05-30] MEDS: KETOROLAC 15 MG INJ IV PRN (19:58)
[2019-05-30 20:00] VITALS: BP 146/71; PULSE 92; RESP 17
[2019-05-31] MEDS: INSULIN ASPART [NOVOLOG] 3 ML PEN SC SCH ×6 (01:00→20:54)
[2019-05-31 02:00] VITALS: BP 133/68; PULSE 98; RESP 15
[2019-05-31] MEDS: ACCU-CHEK XX SCH (02:00)
[2019-05-31] MEDS: KETOROLAC 15 MG INJ IV PRN (02:33)
[2019-05-31] MEDS: morphine 2 MG INJ IV PRN (03:18)
[2019-05-31] MEDS: PIPER-TAZO 3.375 GM IV (PMX) 100 ML IVPB SCH ×3 (05:21→22:07)
[2019-05-31 08:02] VITALS: BP 103/56; PULSE 90; RESP 18
[2019-05-31] MEDS: DOCUSATE SODIUM 100 MG CAP PO SCH ×3 (08:27→21:00)
[2019-05-31] MEDS: HEPARIN 5,000 UNIT/1 ML VIAL SC SCH ×2 (08:29→20:56)
[2019-05-31] MEDS: DICLOFENAC SODIUM 1% GEL 100 GM TUBE TP SCH ×4 (08:30→20:57)
[2019-05-31] MEDS: BALSAM PERU/CASTOR OIL 60 GM TUBE TOP SCH ×2 (08:31→20:57)
[2019-05-31] MEDS: LIDOCAINE 5% PATCH TD SCH (12:02)
--- NOTE | 2019-05-31 12:02 | CONS ---
Consult Date/Type/Reason Admit Date/Time May 25, 2019 at 02:29 Initial Consult Date 05/29/19 Type of Consult Pulmonary Requesting Provider: EMILIANO SADLER Date/Time of Note DATE: 05/31/19 TIME: 12:00 Subjective Patient appears comfortable this morning on nasal cannula O2 no respiratory distress Objective Vital Signs Date Temp Pulse Resp B/P (MAP) Pulse Ox O2 O2 Flow FiO2 Time Delivery Rate 05/31/19 99.4 90 18 103/56 99 08:02 (72) 05/30/19 Nasal 2.0 21:00 Cannula Intake and Output 05/30/19 05/30/19 05/31/19 1515:00 23:00 07:00 IntakeIntake Total 460 ml 300 ml 220 ml OutputOutput Total 320 ml 600 ml BalanceBalance 460 ml -20 ml -380 ml Exam GENERAL: Thin elderly gentleman on nasal cannula O2 VITAL SIGNS: per chart NECK: Supple. No JVD or lymphadenopathy. CARDIAC EXAM: S1, S2. No added sounds or murmurs. CHEST: Diminished air entry bilaterally ABDOMEN: Soft, nontender. No guarding or rebound. EXTREMITIES: No cyanosis, clubbing or edema. NEUROLOGIC: Generalized weakness. No focal deficits. Results/Medications Result Diagram: 05/30/19 0823 05/30/19 0823 Results 24 hrs Laboratory Tests Test 05/30/19 12:56 05/30/19 20:01 05/31/19 01:26 05/31/19 05:21 Bedside Glucose 118 118 136 159 Test 05/31/19 08:19 Bedside Glucose 154 Medications Current Medications IV Flush (NS 3 ml) 3 ml PER PROTOCOL IV ; Start 05/25/19 at 02:30 Ondansetron HCl (Zofran Inj) 4 mg Q6H PRN IV NAUSEA/VOMITING; Start 05/25/19 at 02:30 Acetaminophen (Tylenol Tab) 650 mg Q6H PRN PO .PAIN 1-3 OR TEMP; Start 05/25/19 at 02:30 Bisacodyl (Dulcolax) 5 mg DAILY PRN PO .CONSTIPATION; Start 05/25/19 at 02:30 Docusate Sodium (Colace) 100 mg Q12 PO ; Start 05/26/19 at 21:00 Diagnostic Test (Pha) (Accu-Chek) 1 ea 02 XX ; Start 05/26/19 at 02:00 Insulin Aspart (Novolog Insulin Pen) NOVOLOG *MILD* ALGORI... Q4 SC Last administered on 05/31/19at 08:30; Admin Dose 1 UNIT; Start 05/26/19 at 01:00 Miscellaneous Information 1 ea NOTE XX ; Start 05/26/19 at 00:30 Glucose (Glutose) 15 gm Q15M PRN PO DECREASED GLUCOSE; Start 05/26/19 at 00:30 Glucose (Glutose) 22.5 gm Q15M PRN PO DECREASED GLUCOSE; Start 05/26/19 at 00:30 Dextrose (D50w Syringe) 25 ml Q15M PRN IV DECREASED GLUCOSE Last administered on 05/26/19at 04:58; Admin Dose 25 ML; Start 05/26/19 at 00:30 Dextrose (D50w Syringe) 50 ml Q15M PRN IV DECREASED GLUCOSE Last administered on 05/26/19at 01:03; Admin Dose 50 ML; Start 05/26/19 at 00:30 Glucagon (Glucagen) 1 mg Q15M PRN IM DECREASED GLUCOSE; Start 05/26/19 at 00:30 Glucose (Glutose) 15 gm Q15M PRN BUCCAL DECREASED GLUCOSE; Start 05/26/19 at 00:30 Heparin Sodium (Porcine) (Heparin (5000 Units/1ml)) 5,000 unit BID SC Last administered on 05/31/19at 08:29; Admin Dose 5,000 UNIT; Start 05/27/19 at 09:00 Piperacillin Sod/ Tazobactam Sod 100 ml @ 200 mls/hr Q8 IVPB Last administered on 05/31/19at 05:21; Admin Dose 200 MLS/HR; Start 05/27/19 at 22:00 Diclofenac Sodium (Voltaren 1% Gel) 4 gm QID TP Last administered on 05/31/19at 08:30; Admin Dose 4 GM; Start 05/28/19 at 14:30 Lidocaine (Lidoderm) 1 patch DAILY TD ; Start 05/28/19 at 14:30 Tramadol HCl (Ultram) 50 mg Q6H PRN PO MODERATE PAIN LEVEL 4-6; Start 05/29/19 at 07:00 Ketorolac Tromethamine (Toradol) 15 mg Q6H PRN IV PAIN Last administered on 05/31/19at 02:33; Admin Dose 15 MG; Start 05/30/19 at 19:30; Stop 06/02/19 at 19:29 Morphine Sulfate (morphine) 2 mg Q4H PRN IV SEVERE PAIN LEVEL 7-10 Last administered on 05/31/19at 03:18; Admin Dose 2 MG; Start 05/31/19 at 03:00 Assessment/Plan Hospital Course (Demo Recall) IMP: 1. 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 2. Left hydroPTX s/p thora attempt 3. Severe deconditioning and cachexia RECS: 1. Await IHC stains on liver bx, initial bx c/w poorly differentiated carcinoma. 2. Agree wt DNR status 3. Conservative management of PTX with nitrogen washout with high FiO2 as needed. palliative care eval. ALEM VEE MD, [facility] May 31, 2019 12:02
[2019-05-31] MEDS ORDERED: DEXTROSE 5%-0.45% NACL 1,000 ML IV SCH (12:30)
--- NOTE | 2019-05-31 12:32 | PN ---
Date/Time of Note Date/Time of Note DATE: 05/31/19 TIME: 12:27 Assessment/Plan VTE Prophylaxis Risk score (from Nsg)>0 risk: 6 SCD applied (from Nsg): No SCD contraindicated: low risk/ambulating Pharmacological prophylaxis: heparin Lines/Catheters IV Catheter Type (from Nrsg): Saline Lock Urinary Cath still in place: No Assessment/Plan Hospital Course 83-year-old male with a past medical history of hypertension, diabetes mellitus, hyperlipidemia and was a [place] [employer] who presents to the presented to the emergency department with complaints of weakness and generalized abdominal pain for the last few weeks currently managed as follows: Large left upper lobe/hilar mass with satellite lesions in the left upper lobe as well as extensive mediastinal lymphadenopathy concerning for metastatic primary lung cancer. Large left pleural effusion and atelectasis of most of the left lower lobe. -Thoracentesis was attempted 2 days ago unsuccessfully -Incentive spirometer? Mild resp insufficiency -newly developing, patient has been on IVF for the last 2 days 2/2 being obtunded, will reduce volume now he's more alert and give 1 dose of lasix Moderately sized necrotic cranial lesion -patient reports this was said to be benign at [facility], will request records, however oncology team here states lesions looks very malignant -planned for excision 06/12/19 at the [facility] Enlarged liver with multiple poorly defined hypodense masses suspicious for a me tastatic disease. -alk phos levels also significantly elevated -likely from lungs per oncology -s/p biopsy 05/27/19, f/u path Hypertension: controlled Diabetes: good control Dyslipidemia Acute renal insufficiency: creatinine levels trending up again Sepsis with bandemia vs SIRS -however high probability of underlying obstructive pna, continue empiric Zosyn -improving Cholelithiasis without cholecystitis Cachexia Chronic dementia? with sundowning -patient was treated with PRN ativan which made him obtunded for 2 days -avoid all mood altering drugs as much as possible -currently refusing labs and nursing interventions Acute encephalopathy (toxic metabolic) improved -patient is more alert and oriented, but still very lethargic, will get PT DNR/DNI Left hydropneumothorax with left upper lobe bronchial occlusion also noted on CT by mass Plan: * Unfortunately, patient condition has deteriorated and at this stage he is not clinically stable for even discharge home or to SNF except under the envelope of hospice. It is highly unlikely that he will get any better. He also seems to not want any supportive intervention. He is appropriate for hospice intervention. When this was brought up earlier to his grandson, his grandson wanted to discuss it with the patient and see what his wishes were. Unfortunately at this time it is unlikely that the patient can partake in decision making, will set up family meeting and discuss goals of care. Prognosis : immediate prognosis is guarded, oysterman prognosis is poor. Result Diagram: 05/30/1923 05/30/19 0823 Results 24hrs Laboratory Tests Test 05/30/19 12:56 05/30/19 20:01 05/31/19 01:26 05/31/19 05:21 Bedside Glucose 118 118 136 159 Test 05/31/19 08:19 05/31/19 12:05 Bedside Glucose 154 193 Subjective 24 Hr Interval Summary Free Text/Dictation Can barely talk, labored breathing, ill looking, but does not want me to touch him Exam/Review of Systems Exam Vitals Vital Signs Date Temp Pulse Resp B/P (MAP) Pulse Ox O2 O2 Flow FiO2 Time Delivery Rate 05/31/19 99.4 90 18 103/56 99 08:02 (72) 05/30/19 Nasal 2.0 21:00 Cannula Intake and Output 05/30/19 05/30/19 05/31/19 1515:00 23:00 07:00 IntakeIntake Total 460 ml 300 ml 220 ml OutputOutput Total 320 ml 600 ml BalanceBalance 460 ml -20 ml -380 ml Exam Refused physical exam Results Results 24hrs Laboratory Tests Test 05/30/19 12:56 05/30/19 20:01 05/31/19 01:26 05/31/19 05:21 Bedside Glucose 118 118 136 159 Test 05/31/19 08:19 05/31/19 12:05 Bedside Glucose 154 193 Medications Medication Current Medications IV Flush (NS 3 ml) 3 ml PER PROTOCOL IV ; Start 05/25/19 at 02:30 Ondansetron HCl (Zofran Inj) 4 mg Q6H PRN IV NAUSEA/VOMITING; Start 05/25/19 at 02:30 Acetaminophen (Tylenol Tab) 650 mg Q6H PRN PO .PAIN 1-3 OR TEMP; Start 05/25/19 at 02:30 Bisacodyl (Dulcolax) 5 mg DAILY PRN PO .CONSTIPATION; Start 05/25/19 at 02:30 Docusate Sodium (Colace) 100 mg Q12 PO ; Start 05/26/19 at 21:00 Diagnostic Test (Pha) (Accu-Chek) 1 ea 02 XX ; Start 05/26/19 at 02:00 Insulin Aspart (Novolog Insulin Pen) NOVOLOG *MILD* ALGORI... Q4 SC Last administered on 05/31/19at 12:12; Admin Dose 2 UNIT; Start 05/26/19 at 01:00 Miscellaneous Information 1 ea NOTE XX ; Start 05/26/19 at 00:30 Glucose (Glutose) 15 gm Q15M PRN PO DECREASED GLUCOSE; Start 05/26/19 at 00:30 Glucose (Glutose) 22.5 gm Q15M PRN PO DECREASED GLUCOSE; Start 05/26/19 at 00:30 Dextrose (D50w Syringe) 25 ml Q15M PRN IV DECREASED GLUCOSE Last administered on 05/26/19at 04:58; Admin Dose 25 ML; Start 05/26/19 at 00:30 Dextrose (D50w Syringe) 50 ml Q15M PRN IV DECREASED GLUCOSE Last administered on 05/26/19at 01:03; Admin Dose 50 ML; Start 05/26/19 at 00:30 Glucagon (Glucagen) 1 mg Q15M PRN IM DECREASED GLUCOSE; Start 05/26/19 at 00:30 Glucose (Glutose) 15 gm Q15M PRN BUCCAL DECREASED GLUCOSE; Start 05/26/19 at 00:30 Heparin Sodium (Porcine) (Heparin (5000 Units/1ml)) 5,000 unit BID SC Last administered on 05/31/19at 08:29; Admin Dose 5,000 UNIT; Start 05/27/19 at 09:00 Piperacillin Sod/ Tazobactam Sod 100 ml @ 200 mls/hr Q8 IVPB Last administered on 05/31/19at 05:21; Admin Dose 200 MLS/HR; Start 05/27/19 at 22:00 Diclofenac Sodium (Voltaren 1% Gel) 4 gm QID TP Last administered on 05/31/19at 12:03; Admin Dose 4 GM; Start 05/28/19 at 14:30 Lidocaine (Lidoderm) 1 patch DAILY TD Last administered on 05/31/19at 12:02; Admin Dose 1 PATCH; Start 05/28/19 at 14:30 Tramadol HCl (Ultram) 50 mg Q6H PRN PO MODERATE PAIN LEVEL 4-6; Start 05/29/19 at 07:00 Ketorolac Tromethamine (Toradol) 15 mg Q6H PRN IV PAIN Last administered on 05/31/19at 02:33; Admin Dose 15 MG; Start 05/30/19 at 19:30; Stop 06/02/19 at 19:29 Morphine Sulfate (morphine) 2 mg Q4H PRN IV SEVERE PAIN LEVEL 7-10 Last administered on 05/31/19at 03:18; Admin Dose 2 MG; Start 05/31/19 at 03:00 MISAEL JUNIOR May 31, 2019 12:32
--- NOTE | 2019-05-31 13:47 | PN ---
Date/Time of Note Date/Time of Note DATE: 05/30/19 TIME: 13:46 Assessment/Plan Lines/Catheters IV Catheter Type (from Nrsg): Saline Lock Mckeon in Place (from Nrsg): No Assessment/Plan Assessment/Plan Stage IV lung cancer with a lung mass Would not recommend any aggressive measures with respect to treatment Continue conservative therapy possible chemotherapy for oncology Treatment of possible pleural effusion or pneumothorax Subjective 24 Hr Interval Summary Constitutional: improved Pain Control: mild Exam/Review of Systems Vital Signs Vitals Vital Signs Date Temp Pulse Resp B/P (MAP) Pulse Ox O2 O2 Flow FiO2 Time Delivery Rate 05/31/19 99.4 90 18 103/56 99 08:02 (72) 05/30/19 Nasal 2.0 21:00 Cannula Intake and Output 05/30/19 05/30/19 05/31/19 1515:00 23:00 07:00 IntakeIntake Total 460 ml 300 ml 220 ml OutputOutput Total 320 ml 600 ml BalanceBalance 460 ml -20 ml -380 ml Exam Eyes: nl conjunctiva, EOMI, nl lids, nl sclera ENMT: nl external ears & nose, nl lips & teeth, nl nasal mucosa & septum, mucosa pink and moist Neck: No supple, No non-tender, No jvd, No bruits, No masses, No thyromegaly, No nuchal rigidity, No other Respiratory: clear to auscultation, normal air movement Cardiovascular: regular rate and rhythm, nl pulses Gastrointestinal: soft, nl liver, spleen, non-tender Results Result Diagram: 05/30/19 0823 05/30/19 0823 VIKAS VILLATORO MD May 31, 2019 13:47
--- NOTE | 2019-05-31 13:47 | PN ---
Date/Time of Note Date/Time of Note DATE: 05/31/19 TIME: 13:47 Assessment/Plan Lines/Catheters IV Catheter Type (from Nrsg): Saline Lock Mckeon in Place (from Nrsg): No Assessment/Plan Assessment/Plan Stage IV lung cancer with a lung mass Would not recommend any aggressive measures with respect to treatment Continue conservative therapy possible chemotherapy for oncology Treatment of possible pleural effusion or pneumothorax Subjective 24 Hr Interval Summary Constitutional: improved Pain Control: mild Exam/Review of Systems Vital Signs Vitals Vital Signs Date Temp Pulse Resp B/P (MAP) Pulse Ox O2 O2 Flow FiO2 Time Delivery Rate 05/31/19 99.4 90 18 103/56 99 08:02 (72) 05/30/19 Nasal 2.0 21:00 Cannula Intake and Output 05/30/19 05/30/19 05/31/19 1515:00 23:00 07:00 IntakeIntake Total 460 ml 300 ml 220 ml OutputOutput Total 320 ml 600 ml BalanceBalance 460 ml -20 ml -380 ml Exam Eyes: nl conjunctiva, EOMI, nl lids, nl sclera ENMT: nl external ears & nose, nl lips & teeth, nl nasal mucosa & septum, mucosa pink and moist Neck: supple, non-tender Respiratory: clear to auscultation, normal air movement Cardiovascular: regular rate and rhythm, nl pulses Gastrointestinal: soft, nl liver, spleen, non-tender Results Result Diagram: 05/30/19 0823 05/30/19 0823 VIKAS VILLATORO MD May 31, 2019 13:47
[2019-05-31 14:00] VITALS: BP 119/55; PULSE 96; RESP 17
[2019-05-31 19:53] VITALS: BP 114/57; PULSE 93; RESP 20
[2019-06-01] MEDS: ACCU-CHEK XX SCH (01:01)
[2019-06-01] MEDS: INSULIN ASPART [NOVOLOG] 3 ML PEN SC SCH ×2 (01:01→05:52)
[2019-06-01] MEDS ORDERED: ALBUTEROL/IPRATROPIUM (NEB) 3 ML AMP HHN PRN (01:30)
[2019-06-01] MEDS: morphine 2 MG INJ IV PRN (02:12)
[2019-06-01 02:15] VITALS: BP 104/56; PULSE 86; RESP 20
[2019-06-01] MEDS: KETOROLAC 15 MG INJ IV PRN (03:15)
[2019-06-01] MEDS: PIPER-TAZO 3.375 GM IV (PMX) 100 ML IVPB SCH (05:48)
[2019-06-01 07:30] VITALS: BP 45/26; PULSE 52; RESP 8
--- NOTE | 2019-06-01 14:29 | DES ---
Date/Time of Note Date/Time of Note DATE: 06/01/19 TIME: 14:27 Discharge/ Summary Admission/Discharge Info Admit Date/Time May 25, 2019 at 02:29 Final Diagnosis 83-year-old male with a past medical history of hypertension, diabetes mellitus, hyperlipidemia and was a [place] who presents to the presented to the emergency department with complaints of weakness and generalized abdominal pain for the last few weeks currently managed as follows: Large left upper lobe/hilar mass with satellite lesions in the left upper lobe as well as extensive mediastinal lymphadenopathy concerning for metastatic primary lung cancer. Large left pleural effusion and atelectasis of most of the left lower lobe. -Thoracentesis was attempted 2 days ago unsuccessfully -Incentive spirometer? Respiratory failure -newly developing, patient has been on IVF for the last 2 days 2/2 being obtunded, will reduce volume now he's more alert and give 1 dose of lasix Moderately sized necrotic cranial lesion -patient reports this was said to be benign at [facility], will request records, however oncology team here states lesions looks very malignant -planned for excision 06/12/19 at the [facility] Enlarged liver with multiple poorly defined hypodense masses suspicious for a metastatic disease. -alk phos levels also significantly elevated -likely from lungs per oncology -s/p biopsy 05/27/19, f/u path Hypertension: controlled Diabetes: good control Dyslipidemia Acute renal insufficiency: creatinine levels trending up again Sepsis with bandemia vs SIRS -however high probability of underlying obstructive pna, continue empiric Zosyn -improving Cholelithiasis without cholecystitis Cachexia Chronic dementia? with sundowning -patient was treated with PRN ativan which made him obtunded for 2 days -avoid all mood altering drugs as much as possible -currently refusing labs and nursing interventions Acute encephalopathy (toxic metabolic) improved -patient is more alert and oriented, but still very lethargic, will get PT DNR/DNI Left hydropneumothorax with left upper lobe bronchial occlusion also noted on CT by mass . Preliminary Cause of Acute respiratory failure . Hospital Course 83-year-old male who had presented to us he lied 2018 with complaints of weakness and generalized abdominal pain with a past medical history of hypertension diabetes mellitus dyslipidemia. The patient was worked up in the emergency room and a CAT scan had shown that he had a large left upper lobe hilar mass with satellite lesions in the left upper lobe as well as extensive mediastinal lymphadenopathy concerning for metastatic primary lung cancer. The imaging also noted large left pleural effusion and atelectasis of most of the left lower lobe. The patient had also a chronic cranial lesion that was somewhat necrotic that was being worked up at the [facility]. Per the patient it was said to be benign and he was planned for an excision on June 12, 2019. Imaging also showed an enlarged liver with multiple poorly defined hypodense masses suspicious for metastatic disease. Patient was also found to be with sepsis and bandemia that was thought to be likely secondary to obstructive pneumonia. He was admitted and treated with antibiotics IV fluid hydration as an work-up commenced for the above. The patient was planned for a liver biopsy as well as possible thoracentesis. However attempted thoracentesis was done that was unsuccessful due to lack of fluid. On the first day of socialization however patient experienced sundowning became confused and agitated and had to be sedated. Also after thoracentesis patient developed a small pneumothorax and his respiratory status also declined. After that the patient never fully recovered, his mentation improved once the benzodiazepine wall of, but his respiratory status never really got better. Multiple discussions were had with the patient's grandson and decision-maker about the poor prognosis and poor long- term prognosis and multiple physicians recommended hospice and palliative care. Family was yet to make the decision when patient passed however. Patient had noted that he wanted to be DO NOT RESUSCITATE and DO NOT INTUBATE when he got admitted. Patient was pronounced by the house wirer June 01, 2019 at 8:30 AM. . Pending Labs/Cultures Laboratory Tests Test 05/31/19 16:39 05/31/19 20:53 06/01/19 00:54 06/01/19 05:47 Bedside 179 136 151 176 Glucose mg/dL (70-220) mg/dL (70-220) mg/dL (70-220) mg/dL (70-220) MISAEL JUNIOR Jun 01, 2019 14:29
== END 2019-06-01 08:30 | disposition expired | DRG 871 ==
LOC: E/R 22:41 → 6WM 05-25 02:29 → PP2 05-27 12:55
PROVIDERS: ADMIT Family Medicine; ATTEND Family Medicine
PROC: 0WJB3ZZ Inspection of Left Pleural Cavity, Percutaneous Approach (ICD-10-PCS; 2019-05-26)
PROC: 0FB03ZX Excision of Liver, Percutaneous Approach, Diagnostic (ICD-10-PCS; principal; 2019-05-27)
DX: A41.9 Sepsis, unspecified organism (principal); G92 Toxic encephalopathy; E43 Unspecified severe protein-calorie malnutrition; J96.00 Acute respiratory failure, unspecified whether with hypoxia or hypercapnia; J18.9 Pneumonia, unspecified organism; C34.90 Malignant neoplasm of unspecified part of unspecified bronchus or lung; C78.7 Secondary malignant neoplasm of liver and intrahepatic bile duct; N17.9 Acute kidney failure, unspecified; Z68.1 Body mass index [BMI] 19.9 or less, adult; J94.8 Other specified pleural conditions; R64 Cachexia; F05 Delirium due to known physiological condition; C77.1 Secondary and unspecified malignant neoplasm of intrathoracic lymph nodes; J98.11 Atelectasis; I10 Essential (primary) hypertension; G93.9 Disorder of brain, unspecified; E78.5 Hyperlipidemia, unspecified; C44.40 Unspecified malignant neoplasm of skin of scalp and neck; Z66 Do not resuscitate; E86.0 Dehydration; E11.9 Type 2 diabetes mellitus without complications; K80.20 Calculus of gallbladder without cholecystitis without obstruction; F03.90 Unspecified dementia, unspecified severity, without behavioral disturbance, psychotic disturbance, mood disturbance, and anxiety; Z79.84 Long term (current) use of oral hypoglycemic drugs; Z87.891 Personal history of nicotine dependence
CPT/HCPCS: 36415; 71045; 71250; 74176; 76705; 76775; 76942; 77012; 80048; 80053; 80061; 81001; 82378; 82784; 82962; 83036; 83690; 83735; 84100; 84155; 84165; 84436; 84443; 84479; 84484; 85025; 85610; 85651; 85730; 86301; 86320; 87086; 88307; 88313; 88341; 88342; 92526; 92610; 93005; 94664; 96374; 96375; J1170; J1630; J1644; J1650; J1815; J1885; J1940; J2060; J2270; J2405; J2543; J3010; J7030; J7042; J7120